=== PATIENT | male | born 2000 | race Caucasian/White ===

== ENCOUNTER → 2021-09-08 09:49 | Outpatient (CLI) | payer OTHER, SELFPAY ==
--- NOTE | ~2021-09-08 | XR_ITS ---
EXAMINATION: XR lumbar spine min 4V DATE: 09/08/2021 10:08 INDICATION: A few days of low back pain TECHNIQUE: Anteroposterior, lateral and coned-down lateral lumbosacral views of the lumbar spine were obtained]. COMPARISON: None. FINDINGS: 5 mm anterolisthesis L5 on S1. Alignment is otherwise normal. Mild likely developmental posterior gosia tebral body height loss at L5. Remaining vertebral body heights are normal. Mild to moderate disc hei ght loss at L5-S1. There appears to be some increased lucency extending across the L5 pars interartic ularis suspicious but not definitive for a pars interarticularis defect/defects. Sacrum and bilateral sacroiliac joints are normal. IMPRESSION: 1. 5 mm anterolisthesis L5 on S1 with suspicion for possible associated pars interarticularis defects . Could consider oblique views for more definitive determination. 2. Mild to moderate disc height loss at L5-S1. IMPRESSION: 1. Reviewed, dictated and finalized at location A. IMPRESSION: 1. 5 mm anterolisthesis L5 on S1 with suspicion for possible associated pars in terarticularis defects. Could consider oblique views for more definitive determ ination. 2. Mild to moderate disc height loss at L5-S1. IMPRESSION: 1.
== END ==
PROVIDERS: PCP Family Medicine; Visit Provider Family Medicine
DX: M47.816 Spondylosis without myelopathy or radiculopathy, lumbar region (principal)
CPT/HCPCS: 72110

== ENCOUNTER 2022-11-29 08:01 | Inpatient (IN) | payer OTHER, SELFPAY ==
--- NOTE | ~2022-11-29 | CT_ITS ---
EXAMINATION: CT abdomen pelvis w con INDICATION: Left lower quadrant pain TECHNIQUE: Computed tomographic images of the abdomen and pelvis were obtained after the administrati on of 100 cc of Omnipaque 350 intravenous contrast. The dose-length product (DLP) was 1595.02 mGy-cm. Automated exposure control and iterative reconstruction technique were employed. COMPARISON: None available FINDINGS: Minimal dependent atelectasis is present in the lung bases. The heart size is normal. A 2 m m nodule of the left lower lobe likely reflects granulomatous disease. The liver is diffusely low in attenuation when compared with the spleen, consistent with hepatic steatosis. The spleen, pancreas, g allbladder, and adrenal glands are normal. The kidneys are unremarkable. No pathologically enlarged a bdominal or pelvic lymph nodes are identified. The appendix is normal. Colonic diverticulosis is note d. There is wall thickening of the sigmoid colon with adjacent fat stranding. There is a perisigmoid fluid collection measuring up to 3.9 cm and multiple small locules of adjacent gas, consistent with p erforation. There are no dilated loops of bowel. IMPRESSION: 1. Perforated sigmoid diverticulitis with perisigmoid abscess measuring up to 3.9 cm. Reviewed, dictated and finalized at location L. [employer]ING MACHINE OPERATOR IMPRESSION: 1. Perforated sigmoid diverticulitis with perisigmoid abscess measuring up to 3 .9 cm.
[2022-11-29 08:06] VITALS: BP 153/106; PULSE 100; RESP 18; TEMP 37.2; O2SAT 100
--- NOTE | 2022-11-29 08:10 | ED.GENADULT ---
HPI - General Adult General Chief complaint: Abdominal Pain Stated complaint: abd pain Time Seen by Provider: 11/29/22 08:03 History of Present Illness HPI narrative: 21-year-old male presented to the emergency department for evaluation of lower abdominal pain for approximate 1 week. Patient states over the course of the last week he has had left-sided lower abdominal pain. Patient states he has had some issues with constipation but is also had some diarrhea. Patient denies any prior significant history of constipation but states he does have hemorrhoids. Patient denies any rectal bleeding with this. Patient denies any previous abdominal surgical history. Patient has not had follow-up with any other physicians for this pain today. Related Data Allergies Allergy/AdvReac Type Severity Reaction Status Date / Time No Known Drug Allergies Allergy Unknown Unknown Verified 11/29/22 08:40 Review of Systems Review of Systems: CONSTITUTIONAL: Denies fever, chills, or sweats. EYES: Denies visual changes, redness, or discharge. ENT: Denies rhinorrhea, congestion, sore throat, or otalgia. CARDIOVASCULAR: Denies chest pain, palpitations, or edema. RESPIRATORY: Denies cough or dyspnea. GASTROINTESTINAL: See HPI GENITOURINARY: Denies dysuria or hematuria. SKIN: Denies rash or itching. MUSCULOSKELETAL: Denies back pain, joint pain, or myalgia. NEUROLOGIC: Denies headache, numbness, or weakness. [facility] Past Medical History Medical History No significant past medical history Surgical History Surgical History No pertinent past surgical history Family History Family History Father Diverticulitis large intestine Grandparent Diverticulitis large intestine Other Diverticulitis large intestine Social History Social History Smoking status: Current every day smoker Tobacco type: e-cigarettes/vaping Second hand tobacco smoke exposure: Yes Additional smoking assessment comments: social THC smoker Alcohol intake: never Substance use: current Substance use type: marijuana Other substance usage details: Smokes or uses vape pen with marijuana daily Last use: 11/29/22 Lack of Transportation: No Lack of Food: Never True Current Housing: I Have Housing Concerned About Future Housing: No Difficulty Paying Gas/Electric Bills: No Difficulty Paying for Meds: No Currently Unemployed: No Education: Associate Degree Difficulty w/ Childcare or Family Care: No Living arrangements: with family Spiritual care concerns: No Exam Narrative: APPEARANCE: Well appearing, no pain, no distress, well-nourished. HEAD: normocephalic, atraumatic. EYES: PERRLA/EOMI, conjunctivae clear. NOSE: Normal no drainage NECK: Supple. No adenopathy, no masses. RESPIRATORY: Airway patent, respirations nonlabored. Clear to auscultation bilaterally, no rales, rhonchi, wheezing. CARDIOVASCULAR: Regular rate and rhythm without murmurs rubs or gallops. ABDOMINAL: Soft, left lower quadrant tenderness, nondistended, normal bowel sounds MUSCULOSKELETAL: Moves all extremities. Strength/ROM intact, No edema, No calf tenderness. NEURO: Alert. Cranial nerves II through XII intact. Grossly intact SKIN: Warm, dry. Normal Color Course Course Emergency Course: Labs and CT scan were ordered. Patient does have reproducible left lower quadrant tenderness to palpation. With history of hemorrhoids patient likely has history of undiagnosed constipation. Differential diagnosis does include diverticulitis, colitis, small bowel obstruction, appendicitis, constipation. Patient declined any medications for pain control at this time. Patient is afebrile but does have a leukocytosis of 13.3. Patient CT scan showed perforated diverticuli
[2022-11-29 08:23] LABS: Appearance Urine Clear (Clear); Bilirubin Urine Negative (Negative); Blood Urine Negative (Negative); Color Urine Yellow (Yellow); Glucose Urine UA Negative (Negative); Ketones Urine Negative (Negative); Leukocyte Esterase Ur Negative LEU/UL (Negative); Nitrate Urine Negative (Negative); Protein Urine Negative (Negative); Specific Grav Ur 1.025 (1.001-1.035); Urobilinogen Urine 0.2 mg/dL (<2.0)
[2022-11-29 08:31] LABS: Add Urine Microscopic? NO
[2022-11-29 08:32] LABS: Basophils Absolute Auto 0.1 K/mm3 (0.0-0.1); Basophils Percent Auto 0.5 % (0.2-1.2); Eosinophils Absolute Auto 0.2 K/mm3 (0-0.3); Eosinophils Percent Auto 1.3 % (0-4.4); Hematocrit 45.2 % (42.0-52.0); Hemoglobin 14.2 g/dL (14.0-18.0); Immature Granulocyte Absolute 0.06 K/mm3 (0.00-0.031); Immature Granulocyte Percent A 0.5 % (0-0.5); Lymphocytes Percent Auto 18.1 % (18.3-44.2); Mean Corpuscular HGB Conc 31.4 g/dl (32-36); Mean Corpuscular Hemoglobin 26.3 pg (26-34); Mean Corpuscular Volume 83.7 fl (80-100); Mean Platelet Volume 9.3 fl (7.4-10.4); Monocytes Percent Auto 7.8 % (2.6-8.5); Neutrophils Absolute Auto 9.5 K/mm3 (1.3-6.7); Neutrophils Percent Auto 71.8 % (45.5-73.1); Platelet Count Result 315 k/mm3 (150-375); Red Cell Distribution Width 13.2 % (11.5-14.5); White Blood Count 13.3 K/mm3 (4.5-10.0)
[2022-11-29 08:41] LABS: Alanine Aminotransferase 22 U/L (6-50); Albumin Level 4.1 g/dL (3.5-5.1); Alkaline Phosphatase 111 U/L (38-126); Anion Gap 9 mmol/L (8-16); Aspartate Amino Transferase 27 U/L (17-59); Bilirubin,Total 0.2 mg/dL (0.2-1.3); Blood Urea Nitrogen 14 mg/dL (9-20); Calcium 8.6 mg/dL (8.4-10.2); Carbon Dioxide 24 mmol/L (22-30); Chloride 104 mmol/L (98-107); Estimated CRCL calculation 166 ml/min; Estimated Glomerular Filt Rate > 60; Glucose 112 mg/dL (65-110); Lactic Acid Reflex 0.8 mmol/L (0.7-2.0); Lipase 55 U/L (23-300); Potassium 3.8 mmol/L (3.4-5.0); Sodium 137 mmol/L (137-145)
[2022-11-29] MEDS: SODIUM CHLORIDE 0.9% IV 1,000 ML 999 ML IV CONT (08:46)
[2022-11-29 10:24] LABS: Influenza A QL RT-PCR Negative (Negative); Influenza B QL RT-PCR Negative (Negative); RSV RNA, RT-PCR Negative (Negative); SARS-CoV-2 RNA PCR Negative
[2022-11-29 11:00] VITALS: BP 143/99; PULSE 73; RESP 16; O2SAT 100
--- NOTE | 2022-11-29 11:02 | PM.IMHP ---
H&P: HPI History of Present Illness Date/Time: 11/29/22 11:02 Chief Complaint: Lower abdominal pain Narrative: This is a 21-year-old with no known medical history, who presented to the ER with complaints of lower abdominal pain. His pain started about 1 week ago and was mild initially. He first noticed LLQ and suprapubic abdominal pain. Denies any associated nausea, vomiting, bloating, fevers, or chills. He does reports having loose stools over the past week, but prior to his abdominal pain he deals with chronic constipation. Over the past 2 days, his abdominal pain worsened and he states it goes across his entire lower abdomen, but worse in LLQ. It is aggravated by straining when he urinates or moves his bowels. The pain kept him up last night and he decided to come into the ER for evaluation. Labs showed a WBC count 13,300. He was afebrile in the ER. CT scan of the abdomen and pelvis showed perforated sigmoid diverticulitis with perisigmoid abscess measuring up to 3.9 cm. Our service was consulted by the ED physician for the perforated diverticulitis with abscess. He is now seen in the ER for surgical consultation. He is accompanied by his mother. He denies ever having diverticulitis in the past. Denies any surgical history. Review of Systems Review of Systems: All systems reviewed & are unremarkable except as noted in HPI and below Constitutional: Constitutional: Reports no additional constitutional complaints, Denies chills, Denies fatigue and Denies poor appetite Eyes: Eyes: Reports no additional eye complaints ENT: Reports system reviewed and no additional complaints, except as documented and Denies dizziness Cardiovascular: Cardiovascular: Reports no additional cardiovascular complaints, Denies chest pain and Denies leg edema Respiratory: Respiratory: Reports no additional respiratory complaints, Denies cough and Denies dyspnea Gastrointestinal: Gastrointestinal: Reports as per HPI, Reports no additional gastrointestinal complaints, Reports abdominal pain, Denies melena, Denies hematochezia, Reports loose stools, Denies nausea and Denies vomiting Genitourinary: Genitourinary: Reports no additional male genitourinary complaints and Denies dysuria Musculoskeletal: Musculoskeletal: Reports no additional musculoskeletal complaints, Denies abnormal gait and Denies joint swelling Integumentary/Breasts: Skin/Breast: Reports system reviewed and no additional complaints, except as docu Neurologic: Reports system reviewed and no additional complaints, except as documented, Denies focal weakness, Denies numbness and Denies tingling PMFSH Past Medical History Medical History No significant past medical history Surgical History Surgical History No pertinent past surgical history Family History Family History Father Diverticulitis large intestine Grandparent Diverticulitis large intestine Other Diverticulitis large intestine Social History Social History Smoking status: Never smoker Alcohol intake: never Substance use: current Substance use type: marijuana Other substance usage details: Smokes or uses vape pen with marijuana daily Last use: 11/29/22 Meds Home Medications and Allergies Allergies Allergy/AdvReac Type Severity Reaction Status Date / Time No Known Drug Allergies Allergy Unknown Unknown Verified 11/29/22 08:40 Vital Signs Vital Signs - 24 hr 11/29/22 08:06 Temperature 99 F Pulse Rate 100 Respiratory Rate 18 Blood Pressure 153/106 H Pulse Oximetry 100 Oxygen Delivery Room Air Exam Const: General: comfortable, no acute distress and awake Nutritional Appearance: obese Orientation/consciousness: patient oriented x3 HENMT: Head: normocephalic and atraumatic Ears:
--- NOTE | 2022-11-29 11:07 | PC.NURSE ---
This patient, Shaw Fuentes, was admitted to [facility] Surg Room 316-02. Patient/family oriented to hospital policies and general routines including ID bracelet, bed and alarms, visiting hours, pain management, procedures, bathroom and other care routines, personal items, smoking policy, room service/diet, and visiting hours. Information on how to activate the Rapid Response Team has been discussed. Patient/Family are encouraged to report perceived risks to care and to ask questions if they do not understand what they are told or what they should do.
[2022-11-29 11:28] VITALS: BP 138/96; PULSE 76; RESP 18; TEMP 36; O2SAT 100
[2022-11-29] MEDS: SODIUM CHLORIDE 0.9% IV 1,000 ML 100 ML IV CONT ×2 (13:02→23:43)
[2022-11-29 13:03] VITALS: BMI 42.7
[2022-11-29 13:50] VITALS: BP 160/102; PULSE 87; RESP 18; TEMP 36.4; O2SAT 99
[2022-11-29 21:20] VITALS: BP 123/93; PULSE 75; RESP 16; TEMP 36.8; O2SAT 96
[2022-11-30] MEDS: ONDANSETRON INJ 4 MG/2 ML VIAL IV PUSH (06:10)
[2022-11-30] MEDS: HYDROmorphone HCL INJ (*CRX) 1 MG/ML SYR 0.5 MG IV PUSH (06:10)
[2022-11-30 06:21] VITALS: BP 134/91; PULSE 82; RESP 16; TEMP 36.4; O2SAT 100
[2022-11-30 06:21] LABS: Hematocrit 42.4 % (42.0-52.0); Hemoglobin 13.4 g/dL (14.0-18.0); Mean Corpuscular HGB Conc 31.6 g/dl (32-36); Mean Corpuscular Hemoglobin 26.6 pg (26-34); Mean Corpuscular Volume 84.1 fl (80-100); Mean Platelet Volume 9.6 fl (7.4-10.4); Platelet Count Result 291 k/mm3 (150-375); Red Blood Count 5.04 M/mm3 (4.6-6.20); Red Cell Distribution Width 13.3 % (11.5-14.5); White Blood Count 11.3 K/mm3 (4.5-10.0)
[2022-11-30 06:47] LABS: Potassium 3.7 mmol/L (3.4-5.0)
[2022-11-30 06:58] LABS: Anion Gap 6 mmol/L (8-16); Blood Urea Nitrogen 12 mg/dL (9-20); CRP 6.4 mg/dL (<1.0); Calcium 8.6 mg/dL (8.4-10.2); Carbon Dioxide 28 mmol/L (22-30); Chloride 106 mmol/L (98-107); Estimated CRCL calculation 149 ml/min; Estimated Glomerular Filt Rate > 60; Glucose 103 mg/dL (65-110); Sodium 140 mmol/L (137-145)
--- NOTE | 2022-11-30 10:17 | PM.PNGS ---
Progress Note: A&P Assessment and Plan (1) Diverticulitis of intestine with perforation and abscess: Qualifiers: Diverticulitis bleeding: without bleeding Diverticulitis site: large intestine Qualified Code(s): K57.20 - Diverticulitis of large intestine with perforation and abscess without bleeding Code(s): K57.80 - Diverticulitis of intestine, part unspecified, with perforation and abscess without bleeding Status: Acute Assessment and Plan: Still having pain but seems to be controlled well with analgesics. Has active bowel sounds and abdominal tenderness seems improved. White blood cell count is slightly lower. Will go ahead and start on clear liquids. Continue to follow daily exam, labs, vital signs. Subjective Subjective Date/Time Seen: 11/30/22 10:17 Patient reports: still having pain, no bowel movement, nausea and afebrile Interval history: Abdominal pain seems to be more constant and less episodic then it was before. Relieved by analgesics. Had some nausea but this was relieved with Zofran. Review of Systems Review of Systems: All systems reviewed & are unremarkable except as noted in HPI and below (HPI and those items noted below) Exam Const: General: comfortable, no acute distress, alert and awake; No confusion Nutritional Appearance: obese Orientation/consciousness: patient oriented x3 and No confusion GI: Inspection: non-distended and obesity GI Palp: Yes Soft to palpation, Yes Tenderness to palpation present (GI) (Mostly left lower quadrant, less tender than yesterday), No Guarding due to palpation present (GI), No Palpable mass present and No Rebound tenderness present Auscultation: normal bowel sounds Neuro: General: patient oriented x3, no focal motor deficits and No confusion Extrem: General: no calf tenderness and no edema Psych: Affect: normal affect Insight: Good insight present (Psych) Judgement: Good judgement present (Psych) Objective Data Vital Signs Vital Signs: Vital Signs - 24 hr 11/29/22 11:00 11/29/22 11:28 11/29/22 13:50 Temperature 36.0 C L 36.4 C L Pulse Rate 73 76 87 Respiratory Rate 16 18 18 Blood Pressure 143/99 H 138/96 H 160/102 H Pulse Oximetry 100 100 99 Oxygen Delivery 11/29/22 21:20 11/29/22 20:00 11/30/22 06:21 Temperature 36.8 C 36.4 C L Pulse Rate 75 82 Respiratory Rate 16 16 Blood Pressure 123/93 H 134/91 H Pulse Oximetry 96 100 Oxygen Delivery Room Air 11/30/22 09:00 Temperature Pulse Rate Respiratory Rate Blood Pressure Pulse Oximetry Oxygen Delivery Room Air Intake/Output Intake/Output: Intake & Output 11/27/22 11/28/22 11/29/22 11/30/22 23:59 23:59 23:59 23:59 Intake Total 2200 200 Balance 2200 200 Meds/Results Medications: Active Medications Generic Name Dose Route Start Last Admin Trade Name Freq PRN Reason Stop Dose Admin Acetaminophen 500 mg 11/30/22 09:37 Acetaminophen 500 Mg Tablet PO Q6H PRN Mild Pain (1-3) or Fever Hydrocodone Bitart/Acetaminophen 1 tab 11/30/22 09:37 Hydrocodone/Acetaminophen (*Crx) 5-325 Mg Tablet PO Q4H PRN Pain Rated 4-6 Hydrocodone Bitart/Acetaminophen 1 tab 11/30/22 09:37 Hydrocodone/Acetaminophen (*Crx) 10-325 Mg Tablet PO Q6H PRN Pain Rated 7-10 Enoxaparin Sodium 40 mg 12/01/22 09:00 Enoxaparin 40 Mg/0.4 Ml Syringe SUB-Q DAILY MIKI Hydromorphone HCl 0.5 mg 11/30/22 09:37 Hydromorphone Hcl Inj (*Crx) 1 Mg/Ml Syr IV PUSH Q2H PRN Pain Rated 4-6 Hydromorphone HCl 1 mg 11/30/22 09:37 Hydromorphone Hcl Inj (*Crx) 1 Mg/Ml Syr IV PUSH Q2H PRN Pain Rated 7-10 Piperacillin/Tazobactam/Dextrose 3.375 gm in 50 mls @ 100 mls/hr 11/29/22 18:00 11/30/22 06:08 Zosyn 3.375 Gm/D5w 50ml Pm IVPB Infused Q6HR [facility], [facility] Infusion Potassium Chloride/Dextrose/Sod Cl 1,000 mls @ 80 mls/hr 11/30/22 11:00 Kcl 20 Meq/D5/0.9% Sod Chl IV CONT .[id number] [facility]
[2022-11-30] MEDS: HYDROmorphone HCL INJ (*CRX) 1 MG/ML SYR IV PUSH ×3 (12:19→22:00)
[2022-11-30] MEDS: ENOXAPARIN 40 MG/0.4 ML SYRINGE SUB-Q (12:29)
[2022-11-30] MEDS: KCL 20 MEQ/D5/0.9% SOD CHL 1,000 ML 80 ML IV CONT (12:56)
[2022-11-30 14:00] VITALS: BP 164/98; PULSE 89; RESP 16; TEMP 36; O2SAT 97
[2022-11-30 21:44] VITALS: BP 147/95; PULSE 89; RESP 14; TEMP 36.2; O2SAT 98
[2022-11-30 22:53] VITALS: O2SAT 98
[2022-12-01] MEDS: KCL 20 MEQ/D5/0.9% SOD CHL 1,000 ML 80 ML IV CONT ×2 (00:44→12:24)
[2022-12-01 05:44] VITALS: BP 112/78; PULSE 65; RESP 14; TEMP 36.1; O2SAT 98
[2022-12-01 07:26] LABS: Hematocrit 38.6 % (42.0-52.0); Hemoglobin 12.2 g/dL (14.0-18.0); Mean Corpuscular HGB Conc 31.6 g/dl (32-36); Mean Corpuscular Hemoglobin 26.4 pg (26-34); Mean Corpuscular Volume 83.5 fl (80-100); Mean Platelet Volume 9.5 fl (7.4-10.4); Platelet Count Result 285 k/mm3 (150-375); Red Blood Count 4.62 M/mm3 (4.6-6.20); White Blood Count 10.3 K/mm3 (4.5-10.0)
[2022-12-01 07:50] LABS: Anion Gap 5 mmol/L (8-16); Blood Urea Nitrogen 9 mg/dL (9-20); Carbon Dioxide 28 mmol/L (22-30); Chloride 104 mmol/L (98-107); Estimated CRCL calculation 164 ml/min; Estimated Glomerular Filt Rate > 60; Glucose 97 mg/dL (65-110); Potassium 3.4 mmol/L (3.4-5.0); Sodium 137 mmol/L (137-145)
[2022-12-01] MEDS: HYDROcodone/acetaminophen (*CRX) 10-325 MG TABLET 1 TAB PO (09:05)
[2022-12-01] MEDS: ENOXAPARIN 40 MG/0.4 ML SYRINGE SUB-Q (09:05)
--- NOTE | 2022-12-01 09:49 | PM.PNGS ---
Progress Note: A&P Assessment and Plan (1) Diverticulitis of intestine with perforation and abscess: Qualifiers: Diverticulitis bleeding: without bleeding Diverticulitis site: large intestine Qualified Code(s): K57.20 - Diverticulitis of large intestine with perforation and abscess without bleeding Code(s): K57.80 - Diverticulitis of intestine, part unspecified, with perforation and abscess without bleeding Status: Acute Assessment and Plan: The patient continues to improve with non operative management of his acute diverticulitis with micro perforation and small abscess. His white blood cell count continues to decrease and he remains afebrile. His abdominal tenderness is minimal. Will go ahead and advance him to a full liquid diet later today and if he is tolerating that then will likely is advanced to a low-fiber diet tomorrow and hopefully discharge home on oral antibiotics tomorrow. For now continue on IV antibiotics. Subjective Subjective Date/Time Seen: 12/01/22 09:49 Patient reports: no new complaints, feels better, pain is less and tolerating liquids well Interval history: Patient feels better today. He did have a loose bowel movement this morning. His pain is only 1 on a scale of 1 to 10. He has tolerated clear liquids. White blood cell count is lower today at 10,300. Review of Systems Review of Systems: The remainder of the review of systems to include constitutional, HEENT, cardiovascular, respiratory, GI, , integumentary, musculoskeletal, endocrine, immunologic, hematologic, psychiatric, and neurologic are all negative except for which is mentioned above in the HPI. Exam Narrative: The abdomen is soft and nondistended. Deep palpation in the left lower quadrant elicits minimal tenderness. Resp: Effort & Inspection: normal respiratory effort Auscultation: clear to auscultation bilaterally Cardio: Rate: regular rate Rhythm: regular rhythm Neuro: Speech: normal speech Sensory Exam: normal sensation Extrem: General: normal to inspection Psych: Mental Status: mental status grossly normal Affect: normal affect Objective Data Vital Signs Vital Signs: Vital Signs - 24 hr 11/30/22 14:00 11/30/22 21:44 11/30/22 20:00 Temperature 36.0 C L 36.2 C L Pulse Rate 89 89 Respiratory Rate 16 14 Blood Pressure 164/98 H 147/95 H Pulse Oximetry 97 98 Oxygen Delivery Room Air 12/01/22 05:44 11/30/22 22:53 Temperature 36.1 C L Pulse Rate 65 Respiratory Rate 14 Blood Pressure 112/78 Pulse Oximetry 98 98 Oxygen Delivery Room Air Intake/Output Intake/Output: Intake & Output 11/28/22 11/29/22 11/30/22 12/01/22 23:59 23:59 23:59 23:59 Intake Total 2200 300 1550 Balance 2200 300 1550 Meds/Results Medications: Active Medications Generic Name Dose Route Start Last Admin Trade Name Freq PRN Reason Stop Dose Admin Acetaminophen 500 mg 11/30/22 09:37 Acetaminophen 500 Mg Tablet PO Q6H PRN Mild Pain (1-3) or Fever Hydrocodone Bitart/Acetaminophen 1 tab 11/30/22 09:37 Hydrocodone/Acetaminophen (*Crx) 5-325 Mg Tablet PO Q4H PRN Pain Rated 4-6 Hydrocodone Bitart/Acetaminophen 1 tab 11/30/22 09:37 12/01/22 09:05 Hydrocodone/Acetaminophen (*Crx) 10-325 Mg Tablet PO 1 tab Q6H PRN Administration Pain Rated 7-10 Enoxaparin Sodium 40 mg 12/01/22 09:00 12/01/22 09:05 Enoxaparin 40 Mg/0.4 Ml Syringe SUB-Q 40 mg DAILY MIKI Administration Hydromorphone HCl 0.5 mg 11/30/22 09:37 Hydromorphone Hcl Inj (*Crx) 1 Mg/Ml Syr IV PUSH Q2H PRN Pain Rated 4-6 Hydromorphone HCl 1 mg 11/30/22 09:37 11/30/22 22:00 Hydromorphone Hcl Inj (*Crx) 1 Mg/Ml Syr IV PUSH 1 mg Q2H PRN Administration Pain Rated 7-10 Piperacillin/Tazobactam/Dextrose 3.375 gm in 50 mls @ 100 mls/hr 11/29/22 18:00 12/01/22 06:17 Zosyn 3.375 Gm/D5w 50ml Pm IVPB 100 mls/hr Q6HR MIKI Administratio
[2022-12-01] MEDS: HYDROmorphone HCL INJ (*CRX) 1 MG/ML SYR IV PUSH ×2 (12:50→20:33)
[2022-12-01 14:42] VITALS: BP 145/96; PULSE 77; RESP 18; TEMP 36.3; O2SAT 98
[2022-12-01 21:50] VITALS: BP 140/93; PULSE 88; RESP 14; TEMP 36.1; O2SAT 99
[2022-12-02] MEDS: KCL 20 MEQ/D5/0.9% SOD CHL 1,000 ML 80 ML IV CONT (00:21)
[2022-12-02 05:56] VITALS: BP 141/83; PULSE 61; RESP 14; TEMP 36.1; O2SAT 98
[2022-12-02 07:16] LABS: Hematocrit 45.9 % (42.0-52.0); Hemoglobin 14.3 g/dL (14.0-18.0); Mean Corpuscular HGB Conc 31.2 g/dl (32-36); Mean Corpuscular Hemoglobin 25.8 pg (26-34); Mean Corpuscular Volume 82.9 fl (80-100); Mean Platelet Volume 9.4 fl (7.4-10.4); Platelet Count Result 352 k/mm3 (150-375); Red Blood Count 5.54 M/mm3 (4.6-6.20); Red Cell Distribution Width 12.6 % (11.5-14.5); White Blood Count 8.8 K/mm3 (4.5-10.0)
[2022-12-02 07:26] LABS: Anion Gap 5 mmol/L (8-16); Blood Urea Nitrogen 7 mg/dL (9-20); Calcium 8.7 mg/dL (8.4-10.2); Carbon Dioxide 31 mmol/L (22-30); Chloride 99 mmol/L (98-107); Estimated CRCL calculation 149 ml/min; Estimated Glomerular Filt Rate > 60; Glucose 94 mg/dL (65-110); Potassium 3.3 mmol/L (3.4-5.0); Sodium 135 mmol/L (137-145)
--- NOTE | 2022-12-02 11:56 | PM.DS ---
DS: Admitting Diagnosis Discharge Date December 02, 2022 Admitting Diagnosis Acute diverticulitis with small pelvic abscess. DS: Discharge Diagnosis Discharge Diagnosis (1) Diverticulitis of intestine with perforation and abscess: Qualifiers: Diverticulitis bleeding: without bleeding Diverticulitis site: large intestine Qualified Code(s): K57.20 - Diverticulitis of large intestine with perforation and abscess without bleeding Code(s): K57.80 - Diverticulitis of intestine, part unspecified, with perforation and abscess without bleeding Status: Acute Assessment and Plan: Patient has resolved acute phase diverticulitis with non operative management and IV antibiotics. He will be discharged home today or antibiotics for another 7 days. He was instructed to stay on a low-fiber diet. He will see Dr. Ball in the office in 2 weeks. DS: Summary Hospital Course Hospital Course: Patient was admitted through the emergency room with complaints of lower abdominal pain for 2 days prior to admission. He was noted to have an elevated white blood cell count of 13,[address] scan abdomen pelvis was performed showing acute sigmoid diverticulitis with likely microperforation and a small 3.9cm abscess in the pelvis. He was admitted to the hospital and kept on bowel rest and started on Zosyn for IV antibiotics. He was given pain medicines as needed and hydrated with IV fluids. He responded well to the IV antibiotics and bowel rest. His pain resolved over the course of 2 days and he was started on clear liquids and eventually advanced to a low-fiber diet which he tolerated without difficulty. He was having loose bowel movements at the time of discharge. Remained afebrile throughout his hospitalization and his white blood cell count normalized. His abdominal exam was benign at the time of discharge with no tenderness to deep palpation left lower quadrant of the abdomen. Was discharged home on oral antibiotics and instructed to return to see Dr. Ball in the office in 2 weeks. Status at Discharge Cognitive/behavioral status at discharge: Normal cognitive status Functional status at discharge: independent ambulation Overall status at discharge: patient is back to baseline Time Spent with Patient Time attestation: Total time spent providing and/or coordinating discharge services: Time spent: Less than 30 minutes Exam Narrative: Const: General: comfortable and no acute distress Eyes: General: appearance normal, both eyes and all related structures Pupils: Equal, round and reactive pupils present Neck: Neck: supple and no JVD Resp: Effort & Inspection: normal respiratory effort Auscultation: clear to auscultation bilaterally Cardio: Rate: regular rate Rhythm: regular rhythm GI: Other: Patient's abdomen is soft and nondistended. Palpation of the left lower quadrant and the area of his previous tenderness elicits no tenderness today. The abdominal exam is benign. Skin: General skin exam: normal color and no rashes or lesions noted Neuro: General: gait normal Motor exam (neuro): 5/5 motor strength present throughout Sensory Exam: normal sensation Extrem: General: normal to inspection Psych: Mental Status: mental status grossly normal Affect: normal affect DS: Data Data Completed and Pending Labs on day of discharge: Labs from last 24 hours 12/02/22 12/02/22 06:56 06:56 WBC 8.8 RBC 5.54 Hgb 14.3 Hct 45.9 MCV 82.9 MCH 25.8 L MCHC 31.2 L RDW 12.6 Plt Count 352 MPV 9.4 Sodium 135 L Potassium 3.3 L Chloride 99 Carbon Dioxide 31 H Anion Gap 5 L BUN 7 L Creatinine 1.00 Estim Creat Clear Calc 149 Estimated GFR > 60 Glucose 94 Calcium 8.7 Preliminary micro results at discharge 11/29/22 09:35 Blood Culture - Preliminary Blood 11/29/22 09:35 Blood Culture - Preliminary Blood Discharge Plan Discharge Att
== END 2022-12-02 12:55 | disposition home or self-care (01) | DRG 392 ==
LOC: ANHED 08:29 → ANH3MEDSUR 10:34
PROVIDERS: Nurse Practitioner Family; Admitting Provider Surgery; Emergency Provider Emergency Medicine; PCP Student in an Organized Health Care Education/Training Program; Visit Provider Surgery
DX: K57.20 Diverticulitis of large intestine with perforation and abscess without bleeding (principal); Z68.41 Body mass index [BMI] 40.0-44.9, adult; Z20.822 Contact with and (suspected) exposure to COVID-19; F17.290 Nicotine dependence, other tobacco product, uncomplicated; E66.01 Morbid (severe) obesity due to excess calories; F12.90 Cannabis use, unspecified, uncomplicated
CPT/HCPCS: 36415; 74177; 80048; 80053; 81003; 83605; 83690; 85025; 85027; 86140; 87040; 87637; 99285; A9270; J0131; J1170; J1650; J2405; J2543; J3480; J7030; Q9967

== ENCOUNTER 2022-12-12 19:20 | Inpatient (IN) | payer OTHER, SELFPAY ==
--- NOTE | ~2022-12-12 | CT_ITS ---
EXAMINATION: CT abdomen pelvis w con DATE: 12/12/2022 21:05 INDICATION: Diverticulitis with abscess TECHNIQUE: Computed tomography (CT) of the abdomen and pelvis was performed with 100 mL Omnipaque-350 intravenous contrast. Automated exposure control and iterative reconstruction technique were employe d. The dose-length product was 1668.75 mGy-cm. COMPARISON: 11/29/2022. FINDINGS: Lower thorax: Unremarkable Liver: Enlarged. Diffuse fatty infiltration. Biliary/Gallbladder: Gallbladder is normal. No bile duct dilation. Pancreas: No mass or duct dilation. Spleen: Normal. Adrenals:No mass. Kidneys: No mass, stone, or hydronephrosis. GI tract: No small or large bowel dilation. Normal appendix. Short segment mid sigmoid wall thickenin g in the left lateral deep pelvis, with surrounding inflammatory change, thickening of the adjacent p eritoneal reflection, and a disorganized appearing collection of gas in the adjacent fat. Near-comple te interval resolution of the previously described perisigmoid abscess No defined abscess formation d etected at this time. No portal venous gas. No pneumatosis. Uniform bowel wall enhancement. Mesentery/Peritoneum: No ascites, mass, or free air. Retroperitoneum: No mass. Pelvis: Pelvic organs are within normal limits, except as noted above. Soft Tissues: Soft tissues and body wall unremarkable. Bones: No acute osseous finding. IMPRESSION: Interval improving findings associated with the complicated sigmoid diverticulitis. Near-complete int erval resolution of the perisigmoid abscess. Decreased pericolonic gas associated with the contained microperforation. Reviewed, dictated and finalized at location K. SPECIALIST IMPRESSION: Interval improving findings associated with the complicated sigmoid diverticuli tis. Near-complete interval resolution of the perisigmoid abscess. Decreased pe ricolonic gas associated with the contained microperforation.
[2022-12-12 19:31] VITALS: BP 148/92; PULSE 112; RESP 18; TEMP 37; O2SAT 99
--- NOTE | 2022-12-12 19:45 | PC.NURSE ---
pt c/o LLQ pain x 1 week. states has hx of diverticulitis and pain feels the same. also states he has periods of diarrhea and constipation. denies any n/v or problems with urination
[2022-12-12 20:13] LABS: Basophils Absolute Auto 0.1 K/mm3 (0.0-0.1); Basophils Percent Auto 0.4 % (0.2-1.2); Eosinophils Absolute Auto 0.2 K/mm3 (0-0.3); Eosinophils Percent Auto 0.9 % (0-4.4); Hematocrit 47.4 % (42.0-52.0); Hemoglobin 15.2 g/dL (14.0-18.0); Immature Granulocyte Absolute 0.11 K/mm3 (0.00-0.031); Immature Granulocyte Percent A 0.6 % (0-0.5); Lymphocytes Absolute Auto 2.94 K/mm3 (0.9-3.2); Lymphocytes Percent Auto 14.9 % (18.3-44.2); Mean Corpuscular HGB Conc 32.1 g/dl (32-36); Mean Corpuscular Hemoglobin 26.3 pg (26-34); Mean Corpuscular Volume 81.9 fl (80-100); Mean Platelet Volume 9.5 fl (7.4-10.4); Monocytes Absolute Auto 1.2 K/mm3 (0.1-0.6); Neutrophils Absolute Auto 15.2 K/mm3 (1.3-6.7); Neutrophils Percent Auto 77.2 % (45.5-73.1); Platelet Count Result 363 k/mm3 (150-375); Red Blood Count 5.79 M/mm3 (4.6-6.20); Red Cell Distribution Width 13.5 % (11.5-14.5); White Blood Count 19.7 K/mm3 (4.5-10.0)
[2022-12-12 20:24] LABS: Alanine Aminotransferase 23 U/L (6-50); Albumin Level 4.1 g/dL (3.5-5.1); Alkaline Phosphatase 126 U/L (38-126); Anion Gap 10 mmol/L (8-16); Aspartate Amino Transferase 30 U/L (17-59); Bilirubin,Total 0.4 mg/dL (0.2-1.3); Blood Urea Nitrogen 13 mg/dL (9-20); Calcium 9.2 mg/dL (8.4-10.2); Carbon Dioxide 23 mmol/L (22-30); Chloride 104 mmol/L (98-107); Estimated CRCL calculation 145 ml/min; Estimated Glomerular Filt Rate > 60; Glucose 93 mg/dL (65-110); Lipase 54 U/L (23-300); Potassium 3.8 mmol/L (3.4-5.0); Sodium 137 mmol/L (137-145)
--- NOTE | 2022-12-12 21:11 | ED.GENADULT ---
HPI - General Adult General Chief complaint: Abdominal Pain Stated complaint: abdominal pain Time Seen by Provider: 12/12/22 19:58 History of Present Illness HPI narrative: 22-year-old male presents with bilateral lower quadrant abdominal pain. Of note he was just discharged from our facility where he was treated as an inpatient for diverticulitis with abscess. He was discharged home with Augmentin and patient states that all medications were taken as directed. He denies fever. Related Data Allergies Allergy/AdvReac Type Severity Reaction Status Date / Time No Known Drug Allergies Allergy Unknown Unknown Verified 12/12/22 19:43 Review of Systems Review of Systems: CONSTITUTIONAL: Denies fever, chills, or sweats. EYES: Denies visual changes, redness, or discharge. ENT: Denies rhinorrhea, congestion, sore throat, or otalgia. CARDIOVASCULAR: Denies chest pain, palpitations, or edema. RESPIRATORY: Denies cough or dyspnea. GASTROINTESTINAL: Denies abdominal pain, nausea, vomiting, or diarrhea. GENITOURINARY: Denies dysuria or hematuria. SKIN: Denies rash or itching. MUSCULOSKELETAL: Denies back pain, joint pain, or myalgia. NEUROLOGIC: Denies headache, numbness, or weakness. PSYCHIATRIC: Denies anxiety or depression. FORMERLY [facility], [facility] Past Medical History Medical History No significant past medical history Surgical History Surgical History No pertinent past surgical history Family History Family History Father Diverticulitis large intestine Grandparent Diverticulitis large intestine Other Diverticulitis large intestine Social History Social History Smoking status: Current every day smoker Tobacco type: e-cigarettes/vaping Second hand tobacco smoke exposure: Yes Additional smoking assessment comments: social THC smoker Alcohol intake: never Substance use: current Substance use type: marijuana Other substance usage details: Smokes or uses vape pen with marijuana daily Last use: 11/29/22 Lack of Transportation: No Lack of Food: Never True Current Housing: I Have Housing Concerned About Future Housing: No Difficulty Paying Gas/Electric Bills: No Difficulty Paying for Meds: No Currently Unemployed: No Education: Associate Degree Difficulty w/ Childcare or Family Care: No Living arrangements: with family Spiritual care concerns: No Exam Narrative: GENERAL: Well-appearing, well-nourished, and in no acute distress. HEAD: Normocephalic, atraumatic. EYES: PERRLA and EOMI. ENT: Nares clear, no rhinorrhea or epistaxis. Mucous membranes moist. NECK: Supple. CHEST: Clear to auscultation. No respiratory distress. HEART: Regular rate and rhythm. No murmur heard. Normal peripheral pulses. ABDOMEN: Soft, tender, nondistended, normal active bowel sounds. EXTREMITIES: Normal range of motion. No edema. SKIN: Warm, dry, no rash. NEURO: No focal deficits. Alert and oriented x3. PSYCH: Normal mood and affect. Course Vital Signs Vital signs: Vital Signs Temperature 98.6 F 12/12/22 19:31 Pulse Rate 112 H 12/12/22 19:31 Respiratory Rate 18 12/12/22 19:31 Blood Pressure 148/92 H 12/12/22 19:31 Pulse Oximetry 99 12/12/22 19:31 Oxygen Delivery Room Air 12/12/22 19:31 Temperature 98.6 F 12/12/22 19:31 Pulse Rate 112 H 12/12/22 19:31 Respiratory Rate 18 12/12/22 19:31 Blood Pressure 148/92 H 12/12/22 19:31 Pulse Oximetry 99 12/12/22 19:31 Oxygen Delivery Room Air 12/12/22 19:31 Medical Decision Making [facility] Narrative Medical decision making narrative: On arrival 20,000 white count noted. We will add antibiotics, pain medicine, CT abdomen and pelvis. Patient was compliant with outpatient therapy but has continued/worsening s
[2022-12-12] MEDS: MORPHINE SULFATE (*CRX) 4 MG/ML INJ IV PUSH (21:36)
[2022-12-12 21:40] VITALS: BP 134/85; PULSE 95; RESP 16; O2SAT 100
[2022-12-12 21:46] LABS: Appearance Urine Clear (Clear); Bilirubin Urine Negative (Negative); Blood Urine Trace-intact (Negative); Color Urine Yellow (Yellow); Glucose Urine UA Negative (Negative); Ketones Urine Negative (Negative); Leukocyte Esterase Ur Negative LEU/UL (Negative); Nitrate Urine Negative (Negative); Protein Urine Negative (Negative); Specific Grav Ur 1.025 (1.001-1.035); Urobilinogen Urine 0.2 mg/dL (<2.0); pH Urine 5.5 (5.0-9.0)
[2022-12-12 21:49] LABS: Add Urine Microscopic? YES; Bacteria Urine Trace /hpf; Mucus Urine Rare /lpf; RBC Urine 0-2 /hpf (0-2); WBC Urine 0-3 /hpf
[2022-12-12 22:00] VITALS: BP 136/79; PULSE 88; RESP 18; O2SAT 99
[2022-12-12 22:28] LABS: Influenza A QL RT-PCR Negative (Negative); Influenza B QL RT-PCR Negative (Negative); RSV RNA, RT-PCR Negative (Negative); SARS-CoV-2 RNA PCR Negative
[2022-12-12] MEDS: ONDANSETRON INJ 4 MG/2 ML VIAL IV PUSH (23:20)
--- NOTE | 2022-12-12 23:34 | PM.IMHP ---
H&P: HPI History of Present Illness Date/Time: 12/12/22 23:34 Chief Complaint: Left lower quadrant pain Narrative: 22 years old gentleman with history of morbid obesity, sigmoid diverticulitis and a micro perforation present ED with a chief complaint of worsening left lower quadrant pain, chills, subjective fever. Patient was admitted to hospital on November 29 and discharged on December 02 because of sigmoid diverticulitis with perforation. Patient received Zosyn and switch to Augmentin at discharge. Patient received last dose of Augmentin 3 days ago. In past 2 days, patient has been feeling worsening left lower quadrant pain also serve as fever and chills, and patient also has nausea denies vomiting diarrhea. Patient comes back to ED today, patient is found have leukocytosis. Patient receives cells in ed. ED physician also consulted the general surgeon, general surgeon recommends to admit patient to hospital for further evaluation and management Review of Systems Review of Systems: All systems reviewed & are unremarkable except as noted in HPI and below PMFSH Past Medical History Medical History No significant past medical history Surgical History Surgical History No pertinent past surgical history Family History Family History Father Diverticulitis large intestine Grandparent Diverticulitis large intestine Other Diverticulitis large intestine Social History Social History Smoking status: Current every day smoker Tobacco type: e-cigarettes/vaping Second hand tobacco smoke exposure: Yes Additional smoking assessment comments: social THC smoker Alcohol intake: never Substance use: current Substance use type: marijuana Other substance usage details: Smokes or uses vape pen with marijuana daily Last use: 11/29/22 Lack of Transportation: No Lack of Food: Never True Current Housing: I Have Housing Concerned About Future Housing: No Difficulty Paying Gas/Electric Bills: No Difficulty Paying for Meds: No Currently Unemployed: No Education: Associate Degree Difficulty w/ Childcare or Family Care: No Living arrangements: with family Spiritual care concerns: No Meds Home Medications and Allergies Home Medications Medication Instructions Recorded Confirmed Type amoxicillin-potassium clavulanate 1 tablet PO Q12H Diverticulitis 12/02/22 Rx 1,000 mg-62.5 mg tablet,ext.rel #14 tabs 12hr (Augmentin XR) Allergies Allergy/AdvReac Type Severity Reaction Status Date / Time No Known Drug Allergies Allergy Unknown Unknown Verified 12/12/22 19:43 Vital Signs Vital Signs - 24 hr 12/12/22 19:31 Temperature 98.6 F Pulse Rate 112 H Respiratory Rate 18 Blood Pressure 148/92 H Pulse Oximetry 99 Oxygen Delivery Room Air Exam Narrative: GENERAL: Morbid obesity acute pain distress. Well-nourished. - EYES: EOMI. Anicteric. - HENT: Moist mucous membranes. - LUNGS: Clear to auscultation bilaterally, no wheezing, rhonchi, or rales. - CARDIOVASCULAR: Regular rate and rhythm. No murmur. No JVD. - ABDOMEN: Soft,has left lower quadrant tender and non-distended. No palpable masses. - EXTREMITIES: No edema. Peripheral pulses 2+. Non-tender. - NEUROLOGIC: No focal neurological deficits. CN II-XII grossly intact. - PSYCHIATRIC: Awake, Alert and oriented x 3. Appropriate mood and affect. - SKIN: No rashes or lesions. Warm. - LYMPH: No cervical lymphadenopathy. H&P: Results Labs Labs: Short CBC 12/12/22 Range/Units 20:07 WBC 19.7 H (4.5-10.0) K/mm3 Hgb 15.2 (14.0-18.0) g/dL Hct 47.4 (42.0-52.0) % Plt Count 363 (150-375) k/mm3 [facility] 12/12/22 20:07 Sodium 137 Potassium 3.8 Chloride 104 Carbon Dioxide 23
[2022-12-13 00:20] VITALS: BP 134/81; O2SAT 100
[2022-12-13 01:00] VITALS: BP 150/93; PULSE 107; RESP 16; TEMP 36; O2SAT 98
[2022-12-13 01:00] LABS: Anion Gap 10 mmol/L (8-16); Blood Urea Nitrogen 12 mg/dL (9-20); Calcium 9.2 mg/dL (8.4-10.2); Carbon Dioxide 22 mmol/L (22-30); Chloride 100 mmol/L (98-107); Estimated CRCL calculation 145 ml/min; Estimated Glomerular Filt Rate > 60; Glucose 106 mg/dL (65-110); Potassium 3.6 mmol/L (3.4-5.0); Sodium 132 mmol/L (137-145)
[2022-12-13 01:03] VITALS: BMI 41.9
--- NOTE | 2022-12-13 01:09 | ADMGEN ---
This patient, Shaw Fuentes, was admitted to [facility] Surg Room 300-01. Patient/family oriented to hospital policies and general routines including ID bracelet, bed and alarms, visiting hours, pain management, procedures, bathroom and other care routines, personal items, smoking policy, room service/diet, and visiting hours. Information on how to activate the Rapid Response Team has been discussed. Patient/Family are encouraged to report perceived risks to care and to ask questions if they do not understand what they are told or what they should do.
[2022-12-13] MEDS: ONDANSETRON INJ 4 MG/2 ML VIAL IV PUSH (02:10)
[2022-12-13] MEDS: HYDROcodone/acetaminophen (*CRX) 5-325 MG TABLET 1 TAB PO ×4 (02:10→21:57)
[2022-12-13] MEDS: SODIUM CHLORIDE 0.9% IV 1,000 ML 100 ML IV CONT ×2 (02:11→13:19)
[2022-12-13 04:50] VITALS: O2SAT 98
[2022-12-13 06:00] VITALS: BP 129/67; PULSE 77; RESP 14; TEMP 35.7; O2SAT 98
[2022-12-13] MEDS: ENOXAPARIN 40 MG/0.4 ML SYRINGE SUB-Q (08:17)
[2022-12-13 09:08] LABS: Basophils Absolute Auto 0.1 K/mm3 (0.0-0.1); Basophils Percent Auto 0.4 % (0.2-1.2); Eosinophils Absolute Auto 0.2 K/mm3 (0-0.3); Eosinophils Percent Auto 1.2 % (0-4.4); Hematocrit 42.5 % (42.0-52.0); Hemoglobin 13.6 g/dL (14.0-18.0); Immature Granulocyte Absolute 0.04 K/mm3 (0.00-0.031); Immature Granulocyte Percent A 0.3 % (0-0.5); Lymphocytes Absolute Auto 2.63 K/mm3 (0.9-3.2); Lymphocytes Percent Auto 20.6 % (18.3-44.2); Mean Corpuscular Hemoglobin 25.9 pg (26-34); Mean Corpuscular Volume 80.8 fl (80-100); Mean Platelet Volume 9.7 fl (7.4-10.4); Monocytes Percent Auto 7.8 % (2.6-8.5); Neutrophils Absolute Auto 8.9 K/mm3 (1.3-6.7); Neutrophils Percent Auto 69.7 % (45.5-73.1); Platelet Count Result 294 k/mm3 (150-375); Red Blood Count 5.26 M/mm3 (4.6-6.20); Red Cell Distribution Width 13.6 % (11.5-14.5); White Blood Count 12.8 K/mm3 (4.5-10.0)
[2022-12-13 09:09] LABS: Alanine Aminotransferase 18 U/L (6-50); Albumin Level 3.5 g/dL (3.5-5.1); Alkaline Phosphatase 105 U/L (38-126); Anion Gap 6 mmol/L (8-16); Aspartate Amino Transferase 22 U/L (17-59); Bilirubin,Total 0.6 mg/dL (0.2-1.3); Blood Urea Nitrogen 12 mg/dL (9-20); Calcium 8.5 mg/dL (8.4-10.2); Carbon Dioxide 28 mmol/L (22-30); Chloride 102 mmol/L (98-107); Estimated CRCL calculation 135 ml/min; Estimated Glomerular Filt Rate > 60; Glucose 97 mg/dL (65-110); Potassium 3.7 mmol/L (3.4-5.0); Sodium 136 mmol/L (137-145)
--- NOTE | 2022-12-13 09:31 | PM.CNGS ---
Assessment and Plan Assessment and plan (1) Diverticulitis: Code(s): K57.92 - Diverticulitis of intestine, part unspecified, without perforation or abscess without bleeding Status: Acute Assessment and Plan: Patient treated conservatively for acute diverticulitis with microperforation and abscess. He initially improved, but symptoms returned towards the end of his antibiotic course and he presented back to the ER with abdominal pain. CT scan reviewed and showed improvement of the sigmoid diverticulitis with interval resolution of the previously seen abscess. No large amount of free intraperitoneal air. No peritoneal signs on exam. Discussed the case with Dr. Ball. We would recommend to continue treating him conservatively with IV Zosyn, bowel rest, IV fluids, and analgesics as needed for now. Discussed with the patient that there is no plan for surgical intervention at this time, but if he worsens or continues to fail conservative treatment, then we may need to consider surgery that would come with an increased risk of requiring an ostomy. (2) Sepsis: Code(s): A41.9 - Sepsis, unspecified organism Status: Acute Assessment and Plan: Tachycardia and leukocytosis on admission in the presence of known infection. Related to the complicated diverticulitis. Blood cx pending. WBC trending down this morning. Continue broad-spectrum IV antibiotics. (3) Obesity, morbid, BMI 40.0-49.9: Code(s): E66.01 - Morbid (severe) obesity due to excess calories Status: Acute (4) Marijuana use: Code(s): F12.90 - Cannabis use, unspecified, uncomplicated Status: Acute Plan I have discussed the patient's case and plan of care with Dr. Ball. Thank you for allowing us to see the patient in consultation and we will continue to follow along with you. History of Present Illness Consult details Consult date: 12/13/22 Reason for consult: other (Diverticulitis with perforation) Requesting physician: Vinh Burris APN-C Narrative: This is a 22-year-old obese man who is known to our service from a recent hospitalization for diverticulitis with perforation and abscess. He was admitted and treated conservatively with IV antibiotics from 11/29/22 through 12/02/22. He improved with conservative treatment and was discharged home with an additional 7 days of Augmentin and instructions for a low fiber diet. He reportedly took all antibiotics as prescribed after discharge. His abdominal pain had resolved when first sent home. He reportedly began noticing the same type of lower abdominal pain starting up again the last few days he was on the antibiotics. Initially his abdominal pain was mild. He also had an upset stomach with poor appetite, but denies nausea or vomiting. Denies any fever or chills. He reports his bowel were moving normally after discharge but then over the past few days he had been constipated. He denies taking anything for his abdominal pain at home. He reports that when he is walking, bending over, or hitting bumps in the care his pain is aggravated. His abdominal pain continued to slowly worsen over the past 4 days, therefore he presented back to the ER for evaluation. Labs were significant for a WBC count of 19,700. CT scan abdomen pelvis was repeated and showed interval improvement in sigmoid diverticulitis with near-complete resolution of the perisigmoid abscess and decreased pericolonic gas associated with contained perforation. The patient was admitted to the Hospitalist service. Our service has been consulted for the sigmoid diverticulitis with perforation. He is now seen on the medical floor. He reports his abdominal pain is being controlled currently with the Cl[place]. Even though his pain increased over the past few days, he states it is still less severe than when he presented to the ER the first time on 11/29/22. Since being admitted, he has had 2 loose bowel movements. He does reports his last few BMs have been muc
--- NOTE | 2022-12-13 10:15 | PM.IMPN ---
Progress Note: A&P Assessment and Plan (1) Diverticulitis of intestine with perforation and abscess: Qualifiers: Diverticulitis bleeding: without bleeding Diverticulitis site: large intestine Qualified Code(s): K57.20 - Diverticulitis of large intestine with perforation and abscess without bleeding Code(s): K57.80 - Diverticulitis of intestine, part unspecified, with perforation and abscess without bleeding Status: Acute Assessment and Plan: Ct of abdomen and pelvis: Sigmoid diverticulitis with perforation Worsening abdominal pain associated with chills and subjective fever WBC elevated at 19.7 upon admission, currently 12.8 Continue Zosyn IV started (12/12/22) blood cultures pending Consult general surgeon thank you for your help NPO except Ice chips Continue normal saline IV 100ml/hr Optimize pain management (2) Obesity, morbid, BMI 40.0-49.9: Code(s): E66.01 - Morbid (severe) obesity due to excess calories Status: Acute Assessment and Plan: advice the patient lifestyle changes, exercise (3) Sepsis: Code(s): A41.9 - Sepsis, unspecified organism Status: Acute Assessment and Plan: Meets SIRS criteria with leukocytosis (19.7), hypothermia (96.2), tachycardia (112) Source of infection: diverticulitis with perforation and abscess IV hydration NACL at 100ml/hr Blood cultures drawn Continue IV Zosyn General surgery consult Plan ? MEDICAL DECISION MAKING NARRATIVE ? History obtained from: Patient ? History from independent sources: General Surgery ? External chart review: Surgery's note, discussed plan with general surgery ? New problems addressed:None ? Chronic illnesses addressed: Obesity, tobacco cessation ? Independent interpretation of studies:CT of the abdomen and pelvis ? Comorbidities complicating care:Obesity ? Diagnostic tests considered but not ordered: KUB ? Risk of complication: Moderate, obesity ? Time spent on encounter: 56 minutes Time Spent With Patient Time: 56 minutes Time with patient: Greater than 35 minutes Subjective Date/time seen: 12/13/22 1015 Interval history: 12/13/22 1015 patient was lying in bed stating that he was doing okay. He did still have some pain however he stated that the pain medicine is helping him. He also stated that he has been having some nausea but mostly last night. He has been tolerating clear liquids and ice chips. he denies any chest pain, shortness a breath, headaches, lightheadedness or dizziness, Sweats, fevers, chills. He did state that most of his abdominal pain is on the left and is radiating to the right. 12/12/22? 23:34 22 years old gentleman with history of morbid obesity, sigmoid diverticulitis and a micro perforation present ED with a chief complaint of worsening left lower quadrant pain, chills, subjective fever.? Patient was admitted to hospital on November 29 and discharged on December 02 because of sigmoid diverticulitis with perforation.? Patient received Zosyn and switch to Augmentin at discharge.? Patient received last dose of Augmentin 3 days ago.? In past 2 days, patient has been feeling worsening left lower quadrant pain also serve as fever and chills, and patient also has nausea denies vomiting diarrhea.? Patient comes back to ED today, patient is found have leukocytosis.? Patient receives cells in ed. ED physician also consulted the general surgeon, general surgeon recommends to admit patient to hospital for further evaluation and management Review of Systems Review of Systems: All systems reviewed & are unremarkable except as noted in HPI and below Exam Narrative: General: well-nourished, well-appearing 22-year-old female, sitting up in bed, comfortable, NARD Neuro: awake, alert and oriented x4, speech clear, no focal neuro deficits noted HEENMT: normocephalic, atraumatic, EOMI, sclerae anicteric, moist oral mucosa Resp
[2022-12-13 14:13] VITALS: BP 132/71; PULSE 71; RESP 18; TEMP 36.5; O2SAT 98
[2022-12-13 22:00] VITALS: BP 151/92; PULSE 81; RESP 20; TEMP 35.8; O2SAT 99
[2022-12-14] MEDS: SODIUM CHLORIDE 0.9% IV 1,000 ML 100 ML IV CONT ×3 (03:05→23:53)
[2022-12-14 06:00] VITALS: BP 134/85; PULSE 66; RESP 18; TEMP 35.6; O2SAT 98
--- NOTE | 2022-12-14 06:11 | PM.PNGS ---
Progress Note: A&P Assessment and Plan (1) Diverticulitis of intestine with perforation and abscess: Qualifiers: Diverticulitis bleeding: without bleeding Diverticulitis site: large intestine Qualified Code(s): K57.20 - Diverticulitis of large intestine with perforation and abscess without bleeding Code(s): K57.80 - Diverticulitis of intestine, part unspecified, with perforation and abscess without bleeding Status: Acute Assessment and Plan: Much improved. Very little pain and tenderness markedly improved as well. Will start clear liquids. Continue IV antibiotics. Subjective Subjective Date/Time Seen: 12/14/22 06:11 Patient reports: feels better, pain is less, no bowel movement and afebrile Review of Systems Review of Systems: All systems reviewed & are unremarkable except as noted in HPI and below (HPI and those items noted below) Constitutional: Constitutional: Denies chills and Denies fever(s) Cardiovascular: Cardiovascular: Denies chest pain, Denies diaphoresis, Denies dyspnea and Denies paroxysmal nocturnal dyspnea Respiratory: Respiratory: Denies chest congestion, Denies cough and Denies dyspnea Integumentary/Breasts: Skin/Breast: Denies lesions and Denies rash Exam Const: General: comfortable and no acute distress; No confusion Orientation/consciousness: patient oriented x3 and No confusion GI: Inspection: normal to inspection, non-distended and obesity GI Palp: Yes Soft to palpation, Yes Tenderness to palpation present (GI) (Minimal tenderness, much better than yesterday.), No Guarding due to palpation present (GI) and No Rebound tenderness present Auscultation: normal bowel sounds Neuro: General: patient oriented x3, no focal motor deficits and No confusion Extrem: General: no calf tenderness and no edema Psych: Affect: normal affect Insight: Good insight present (Psych) Judgement: Good judgement present (Psych) Objective Data Vital Signs Vital Signs: Vital Signs - 24 hr 12/13/22 08:00 12/13/22 14:13 12/13/22 20:00 Temperature 36.5 C Pulse Rate 71 Respiratory Rate 18 Blood Pressure 132/71 Pulse Oximetry 98 Oxygen Delivery Room Air Room Air 12/13/22 22:00 Temperature 35.8 C L Pulse Rate 81 Respiratory Rate 20 Blood Pressure 151/92 H Pulse Oximetry 99 Oxygen Delivery Intake/Output Intake/Output: Intake & Output 0112/12/22 12/13/22 12/14/22 23:59 23:59 23:59 23:59 Intake Total 50 2940 Balance 50 2940 Meds/Results Medications: Active Medications Generic Name Dose Route Start Last Admin Trade Name Freq PRN Reason Stop Dose Admin Acetaminophen 650 mg 12/12/22 23:38 Acetaminophen 325 Mg Tablet PO Q4H PRN Mild Pain (1-3) or Fever Hydrocodone Bitart/Acetaminophen 1 tab 12/12/22 23:38 12/13/22 21:57 Hydrocodone/Acetaminophen (*Crx) 5-325 Mg Tablet PO 1 tab Q4H PRN Administration Moderate Pain (4-6) Enoxaparin Sodium 40 mg 12/13/22 09:00 12/13/22 08:17 Enoxaparin 40 Mg/0.4 Ml Syringe SUB-Q 40 mg DAILY MIKI Administration Piperacillin/Tazobactam/Dextrose 3.375 gm in 50 mls @ 100 mls/hr 12/13/22 03:00 12/14/22 03:05 Zosyn 3.375 Gm/D5w 50ml Pm IVPB 100 mls/hr Q6H MIKI Administration Sodium Chloride 1,000 mls @ 100 mls/hr 12/12/22 23:40 12/14/22 03:05 Normal Saline Iv IV CONT 100 mls/hr .Q10H MIKI Administration Morphine Sulfate 4 mg 12/12/22 23:38 Morphine Sulfate (*Crx) 2 Mg/Ml Inj IV PUSH Q4H PRN Pain Rated 7-10 Naloxone HCl 0.1 mg 12/12/22 23:38 Naloxone Hcl 0.4 Mg/Ml Vial IV PUSH Q2M PRN Opiate Reversal Ondansetron HCl 4 mg 12/12/22 23:38 12/13/22 02:10 Ondansetron Inj 4 Mg/2 Ml Vial IV PUSH 4 mg Q6H PRN Administration Nausea And Vomiting Radiology Results: ITS Impressions Abdomen/Pelvis CT 12/12/22 21:19 IMPRESSION: Interval improving findings associated with the complicated sigmoid dive
[2022-12-14 06:45] LABS: Hematocrit 38.5 % (42.0-52.0); Hemoglobin 12.4 g/dL (14.0-18.0); Mean Corpuscular HGB Conc 32.2 g/dl (32-36); Mean Corpuscular Hemoglobin 26.3 pg (26-34); Mean Corpuscular Volume 81.7 fl (80-100); Mean Platelet Volume 9.9 fl (7.4-10.4); Platelet Count Result 263 k/mm3 (150-375); Red Blood Count 4.71 M/mm3 (4.6-6.20); Red Cell Distribution Width 13.2 % (11.5-14.5); White Blood Count 9.2 K/mm3 (4.5-10.0)
[2022-12-14 06:50] LABS: Anion Gap 4 mmol/L (8-16); Blood Urea Nitrogen 9 mg/dL (9-20); Calcium 8.3 mg/dL (8.4-10.2); Carbon Dioxide 28 mmol/L (22-30); Chloride 102 mmol/L (98-107); Estimated CRCL calculation 147 ml/min; Estimated Glomerular Filt Rate > 60; Glucose 82 mg/dL (65-110); Potassium 3.2 mmol/L (3.4-5.0); Sodium 134 mmol/L (137-145)
[2022-12-14] MEDS: ENOXAPARIN 40 MG/0.4 ML SYRINGE SUB-Q (08:31)
--- NOTE | 2022-12-14 10:00 | PM.IMPN ---
Progress Note: A&P Assessment and Plan (1) Diverticulitis of intestine with perforation and abscess: Qualifiers: Diverticulitis bleeding: without bleeding Diverticulitis site: large intestine Qualified Code(s): K57.20 - Diverticulitis of large intestine with perforation and abscess without bleeding Code(s): K57.80 - Diverticulitis of intestine, part unspecified, with perforation and abscess without bleeding Status: Acute Assessment and Plan: Ct of abdomen and pelvis: Sigmoid diverticulitis with perforation Worsening abdominal pain associated with chills and subjective fever WBC elevated at 19.7 upon admission, currently 9.2 Continue Zosyn IV started (12/12/22) blood cultures NGTD Consult general surgeon thank you for your help Increased to clear liquids Continue normal saline IV 100ml/hr Optimize pain management (2) Obesity, morbid, BMI 40.0-49.9: Code(s): E66.01 - Morbid (severe) obesity due to excess calories Status: Acute Assessment and Plan: advice the patient lifestyle changes, exercise (3) Sepsis: Code(s): A41.9 - Sepsis, unspecified organism Status: Acute Assessment and Plan: Meets SIRS criteria with leukocytosis (19.7), hypothermia (96.2), tachycardia (112) Source of infection: diverticulitis with perforation and abscess IV hydration NACL at 100ml/hr Blood cultures NGTD Continue IV Zosyn General surgery consult Time Spent With Patient Time: ? MEDICAL DECISION MAKING NARRATIVE ? History obtained from:? Patient ? History from independent sources: none ? External chart review: Surgery's note ? New problems addressed:appetite ? Chronic illnesses addressed:? Obesity, tobacco cessation ? Independent interpretation of studies: Labs and vital signs ? Comorbidities complicating care: Obesity ? Diagnostic tests considered but not ordered: KUB? ? Risk of complication:? Moderate, obesity ? Time spent on encounter:? 48 minutes Time with patient: Greater than 35 minutes Subjective Date/time seen: 12/14/22 1000 Interval history: 12/14/22 1000 Patient is laying in bed. He denies any current pain. He currently is able to tolerate clear liquids. He denies any chest pain shortness of breath, nausea, vomiting, diarrhea, or constipation. He did state that he did not like broth. Gave him some popsicles, which he stated he would like better. 01/26/23 1015 patient was lying in bed stating that he was doing okay. He did still have some pain however he stated that the pain medicine is helping him. He also stated that he has been having some nausea but mostly last night. He has been tolerating clear liquids and ice chips. he denies any chest pain, shortness a breath, headaches, lightheadedness or dizziness, Sweats, fevers, chills. He did state that most of his abdominal pain is on the left and is radiating to the right. 12/12/22? 23:34 22 years old gentleman with history of morbid obesity, sigmoid diverticulitis and a micro perforation present ED with a chief complaint of worsening left lower quadrant pain, chills, subjective fever.? Patient was admitted to hospital on November 29 and discharged on December 02 because of sigmoid diverticulitis with perforation.? Patient received Zosyn and switch to Augmentin at discharge.? Patient received last dose of Augmentin 3 days ago.? In past 2 days, patient has been feeling worsening left lower quadrant pain also serve as fever and chills, and patient also has nausea denies vomiting diarrhea.? Patient comes back to ED today, patient is found have leukocytosis.? Patient receives cells in ed. ED physician also consulted the general surgeon, general surgeon recommends to admit patient to hospital for further evaluation and management Review of Systems Review of Systems: All systems reviewed & are unremarkable except as noted in HPI and below Exam Narrative: General:? w
[2022-12-14] MEDS: POTASSIUM CHLORIDE 20 MEQ TABLET 40 MEQ PO (12:33)
[2022-12-14 14:00] VITALS: BP 149/83; PULSE 56; RESP 18; TEMP 35.7; O2SAT 99
[2022-12-14] MEDS: POTASSIUM CHLORIDE 20 MEQ TABLET.ER 40 MEQ PO (17:42)
[2022-12-14] MEDS: HYDROcodone/acetaminophen (*CRX) 5-325 MG TABLET 1 TAB PO (21:24)
[2022-12-14 22:00] VITALS: BP 137/75; PULSE 88; RESP 14; TEMP 35.8; O2SAT 98
[2022-12-15 06:00] VITALS: BP 129/75; PULSE 60; RESP 16; TEMP 36.1; O2SAT 99
[2022-12-15 06:58] LABS: Hematocrit 40.9 % (42.0-52.0); Hemoglobin 12.9 g/dL (14.0-18.0); Mean Corpuscular HGB Conc 31.5 g/dl (32-36); Mean Corpuscular Hemoglobin 25.8 pg (26-34); Mean Corpuscular Volume 81.8 fl (80-100); Mean Platelet Volume 10.2 fl (7.4-10.4); Platelet Count Result 253 k/mm3 (150-375); Red Cell Distribution Width 13.3 % (11.5-14.5); White Blood Count 6.9 K/mm3 (4.5-10.0)
[2022-12-15 07:14] LABS: Anion Gap 7 mmol/L (8-16); Blood Urea Nitrogen 7 mg/dL (9-20); Calcium 8.4 mg/dL (8.4-10.2); Carbon Dioxide 24 mmol/L (22-30); Chloride 104 mmol/L (98-107); Estimated CRCL calculation 147 ml/min; Estimated Glomerular Filt Rate > 60; Glucose 82 mg/dL (65-110); Potassium 3.5 mmol/L (3.4-5.0); Sodium 135 mmol/L (137-145)
--- NOTE | 2022-12-15 09:45 | PM.IMPN ---
Progress Note: A&P Assessment and Plan (1) Diverticulitis of intestine with perforation and abscess: Qualifiers: Diverticulitis bleeding: without bleeding Diverticulitis site: large intestine Qualified Code(s): K57.20 - Diverticulitis of large intestine with perforation and abscess without bleeding Code(s): K57.80 - Diverticulitis of intestine, part unspecified, with perforation and abscess without bleeding Status: Acute Assessment and Plan: Ct of abdomen and pelvis: Sigmoid diverticulitis with perforation Worsening abdominal pain associated with chills and subjective fever WBC elevated at 19.7 upon admission, currently 6.9 Continue Zosyn IV started (12/12/22) blood cultures NGTD Consult general surgeon thank you for your help Increased to clear liquids, GS to advance as indicated Continue normal saline IV 100ml/hr Optimize pain management (2) Obesity, morbid, BMI 40.0-49.9: Code(s): E66.01 - Morbid (severe) obesity due to excess calories Status: Acute Assessment and Plan: advice the patient lifestyle changes, exercise (3) Sepsis: Code(s): A41.9 - Sepsis, unspecified organism Status: Acute Assessment and Plan: Meets SIRS criteria with leukocytosis (19.7), hypothermia (96.2), tachycardia (112) Source of infection: diverticulitis with perforation and abscess IV hydration NACL at 100ml/hr Blood cultures NGTD Continue IV Zosyn General surgery consult Resolved and stable at this time Time Spent With Patient Time: 36 minutes Time with patient: Greater than 35 minutes Subjective Date/time seen: 12/15/2245 Interval history: 12/15/22944 Patient was walking around the room. He stated that he was feeling ok. He stated that he is still having pain in his lower abdomen, which he stated was relieved when he has a bowel movement. He does report having a BM today. He did state that his stool is loose. He denies any chest pain, shortness of breath, nausea, vomiting, weakness, or fatigue. 12/14/22 1000 Patient is laying in bed. He denies any current pain. He currently is able to tolerate clear liquids. He denies any chest pain shortness of breath, nausea, vomiting, diarrhea, or constipation. He did state that he did not like broth. Gave him some popsicles, which he stated he would like better. 12/13/22 1015 patient was lying in bed stating that he was doing okay. He did still have some pain however he stated that the pain medicine is helping him. He also stated that he has been having some nausea but mostly last night. He has been tolerating clear liquids and ice chips. he denies any chest pain, shortness a breath, headaches, lightheadedness or dizziness, Sweats, fevers, chills. He did state that most of his abdominal pain is on the left and is radiating to the right. 12/12/22? 23:34 22 years old gentleman with history of morbid obesity, sigmoid diverticulitis and a micro perforation present ED with a chief complaint of worsening left lower quadrant pain, chills, subjective fever.? Patient was admitted to hospital on November 29 and discharged on December 02 because of sigmoid diverticulitis with perforation.? Patient received Zosyn and switch to Augmentin at discharge.? Patient received last dose of Augmentin 3 days ago.? In past 2 days, patient has been feeling worsening left lower quadrant pain also serve as fever and chills, and patient also has nausea denies vomiting diarrhea.? Patient comes back to ED today, patient is found have leukocytosis.? Patient receives cells in ed. ED physician also consulted the general surgeon, general surgeon recommends to admit patient to hospital for further evaluation and management Review of Systems Review of Systems: All systems reviewed & are unremarkable except as noted in HPI and below Exam Narrative: General:? well-nourished, well-appearing 22-year-old f
[2022-12-15] MEDS: POTASSIUM CHLORIDE 20 MEQ TABLET.ER 40 MEQ PO ×2 (09:49→16:30)
--- NOTE | 2022-12-15 12:28 | PM.PNGS ---
Progress Note: A&P Assessment and Plan (1) Diverticulitis of intestine with perforation and abscess: Qualifiers: Diverticulitis bleeding: without bleeding Diverticulitis site: large intestine Qualified Code(s): K57.20 - Diverticulitis of large intestine with perforation and abscess without bleeding Code(s): K57.80 - Diverticulitis of intestine, part unspecified, with perforation and abscess without bleeding Status: Acute Assessment and Plan: exam largely benign, anthony clears, will start low fiber diet, cont abx Subjective Subjective Date/Time Seen: 12/15/22 12:28 feels better today, still some mild tenderness but improved, anthony clears Review of Systems Review of Systems: All systems reviewed & are unremarkable except as noted in HPI and below Exam Const: General: cooperative, comfortable and no acute distress Resp: Auscultation: clear to auscultation bilaterally Cardio: Rate: regular rate Rhythm: regular rhythm GI: Inspection: normal to inspection and non-distended GI Palp: Yes abdominal tenderness, Yes Soft to palpation, Yes Tenderness to palpation present (GI), No Guarding due to palpation present (GI) and No Rigid due to palpation Objective Data Vital Signs Vital Signs: Vital Signs - 24 hr 12/14/22 14:00 12/14/22 22:00 12/15/22 06:00 Temperature 35.7 C L 35.8 C L 36.1 C L Pulse Rate 56 L 88 60 Respiratory Rate 18 14 16 Blood Pressure 149/83 H 137/75 129/75 Pulse Oximetry 99 98 99 Intake/Output Intake/Output: Intake & Output 12/12/22 12/13/22 12/14/22 12/15/22 23:59 23:59 23:59 23:59 Intake Total 50 2940 3140 600 Balance 50 2940 3140 600 Meds/Results Medications: Active Medications Generic Name Dose Route Start Last Admin Trade Name Freq PRN Reason Stop Dose Admin Acetaminophen 650 mg 12/12/22 23:38 Acetaminophen 325 Mg Tablet PO Q4H PRN Mild Pain (1-3) or Fever Hydrocodone Bitart/Acetaminophen 1 tab 12/12/22 23:38 12/14/22 21:24 Hydrocodone/Acetaminophen (*Crx) 5-325 Mg Tablet PO 1 tab Q4H PRN Administration Moderate Pain (4-6) Enoxaparin Sodium 40 mg 12/13/22 09:00 12/15/22 09:49 Enoxaparin 40 Mg/0.4 Ml Syringe SUB-Q Not Given DAILY MIKI Piperacillin/Tazobactam/Dextrose 3.375 gm in 50 mls @ 100 mls/hr 12/13/22 03:00 12/15/22 10:21 Zosyn 3.375 Gm/D5w 50ml Pm IVPB Infused Q6H MIKI Infusion Sodium Chloride 1,000 mls @ 100 mls/hr 12/12/22 23:40 12/14/22 23:53 Normal Saline Iv IV CONT 100 mls/hr .Q10H MIKI Administration Morphine Sulfate 4 mg 12/12/22 23:38 Morphine Sulfate (*Crx) 2 Mg/Ml Inj IV PUSH Q4H PRN Pain Rated 7-10 Naloxone HCl 0.1 mg 12/12/22 23:38 Naloxone Hcl 0.4 Mg/Ml Vial IV PUSH Q2M PRN Opiate Reversal Ondansetron HCl 4 mg 12/12/22 23:38 12/13/22 02:10 Ondansetron Inj 4 Mg/2 Ml Vial IV PUSH 4 mg Q6H PRN Administration Nausea And Vomiting Potassium Chloride 40 meq 12/14/22 17:00 12/15/22 09:49 Potassium Chloride 20 Meq Tablet.Er PO 40 meq BIDWM MIKI Administration Radiology Results: ITS Impressions Abdomen/Pelvis CT 12/12/22 21:19 IMPRESSION: Interval improving findings associated with the complicated sigmoid diverticulitis. Near-complete interval resolution of the perisigmoid abscess. Decreased pericolonic gas associated with the contained microperforation. Labs Labs: Laboratory Results - last 24 hr 12/15/22 12/15/22 05:48 05:48 WBC 6.9 RBC 5.00 Hgb 12.9 L Hct 40.9 L MCV 81.8 MCH 25.8 L MCHC 31.5 L RDW 13.3 Plt Count 253 MPV 10.2 Sodium 135 L Potassium 3.5 Chloride 104 Carbon Dioxide 24 Anion Gap 7 L BUN 7 L Creatinine 1.00 Estim Creat Clear Calc 147 Estimated GFR > 60 Glucose 82 Calcium 8.4
[2022-12-15 14:00] VITALS: BP 132/82; PULSE 69; RESP 14; TEMP 36.2; O2SAT 98
[2022-12-15] MEDS: SODIUM CHLORIDE 0.9% IV 1,000 ML 100 ML IV CONT (21:41)
[2022-12-15 22:00] VITALS: BP 165/108; PULSE 92; RESP 18; TEMP 36.2; O2SAT 100
[2022-12-16 06:00] VITALS: BP 147/100; PULSE 72; RESP 18; TEMP 36.4; O2SAT 100
[2022-12-16 06:02] LABS: Basophils Percent Auto 0.5 % (0.2-1.2); Eosinophils Absolute Auto 0.2 K/mm3 (0-0.3); Eosinophils Percent Auto 2.2 % (0-4.4); Hemoglobin 13.7 g/dL (14.0-18.0); Immature Granulocyte Absolute 0.03 K/mm3 (0.00-0.031); Immature Granulocyte Percent A 0.4 % (0-0.5); Lymphocytes Absolute Auto 2.64 K/mm3 (0.9-3.2); Lymphocytes Percent Auto 30.8 % (18.3-44.2); Mean Corpuscular HGB Conc 31.1 g/dl (32-36); Mean Corpuscular Hemoglobin 26.1 pg (26-34); Monocytes Absolute Auto 0.5 K/mm3 (0.1-0.6); Monocytes Percent Auto 6.3 % (2.6-8.5); Neutrophils Absolute Auto 5.1 K/mm3 (1.3-6.7); Neutrophils Percent Auto 59.8 % (45.5-73.1); Platelet Count Result 312 k/mm3 (150-375); Red Blood Count 5.24 M/mm3 (4.6-6.20); Red Cell Distribution Width 13.3 % (11.5-14.5); White Blood Count 8.6 K/mm3 (4.5-10.0)
[2022-12-16 06:10] LABS: Alanine Aminotransferase 17 U/L (6-50); Albumin Level 3.8 g/dL (3.5-5.1); Alkaline Phosphatase 94 U/L (38-126); Anion Gap 9 mmol/L (8-16); Aspartate Amino Transferase 29 U/L (17-59); Bilirubin,Total 0.5 mg/dL (0.2-1.3); Blood Urea Nitrogen 7 mg/dL (9-20); Calcium 8.8 mg/dL (8.4-10.2); Carbon Dioxide 24 mmol/L (22-30); Chloride 106 mmol/L (98-107); Estimated CRCL calculation 135 ml/min; Estimated Glomerular Filt Rate > 60; Glucose 79 mg/dL (65-110); Magnesium 2.1 mg/dL (1.6-2.3); Potassium 3.9 mmol/L (3.4-5.0); Sodium 139 mmol/L (137-145)
--- NOTE | 2022-12-16 07:20 | PM.IMPN ---
Progress Note: A&P Assessment and Plan (1) Diverticulitis of intestine with perforation and abscess: Qualifiers: Diverticulitis bleeding: without bleeding Diverticulitis site: large intestine Qualified Code(s): K57.20 - Diverticulitis of large intestine with perforation and abscess without bleeding Code(s): K57.80 - Diverticulitis of intestine, part unspecified, with perforation and abscess without bleeding Status: Acute Assessment and Plan: Ct of abdomen and pelvis: Sigmoid diverticulitis with perforation Worsening abdominal pain associated with chills and subjective fever WBC elevated at 19.7 upon admission, currently 8.6 Continue Zosyn IV started (12/12/22) blood cultures NGTD Consult general surgeon thank you for your help Increased low fiber, GS to advance as indicated Continue normal saline IV 100ml/hr, stop at this time since he is taking adequate fluid intake Optimize pain management (2) Obesity, morbid, BMI 40.0-49.9: Code(s): E66.01 - Morbid (severe) obesity due to excess calories Status: Acute Assessment and Plan: advice the patient lifestyle changes, exercise (3) Sepsis: Code(s): A41.9 - Sepsis, unspecified organism Status: Acute Assessment and Plan: Meets SIRS criteria with leukocytosis (19.7), hypothermia (96.2), tachycardia (112) Source of infection: diverticulitis with perforation and abscess IV hydration NACL at 100ml/hr Blood cultures NGTD Continue IV Zosyn General surgery consult Resolved and stable at this time (4) Hypertension: Code(s): I10 - Essential (primary) hypertension Status: Acute Assessment and Plan: BP this am is 147/100 Secondary to pain, disease process, or anxiety Continue to trend Hold on correction Add PRN hydralazine Time Spent With Patient Time: ? MEDICAL DECISION MAKING NARRATIVE ? History obtained from: Patient ? History from independent sources: GS ? External chart review: BP trends from past ? New problems addressed: HTN ? Chronic illnesses addressed: none ? Independent interpretation of studies: Labs review, previous imaging ? Comorbidities complicating care: obesity ? Diagnostic tests considered but not ordered: lipid panel, KUB ? Risk of complication: High ? Time spent on encounter: 53 minutes Time with patient: Greater than 35 minutes Subjective Date/time seen: 12/16/22 07:20 Interval history: 12/16/22 12/15/22 0945 Patient was walking around the room. He stated that he was feeling ok. He stated that he is still having pain in his lower abdomen, which he stated was relieved when he has a bowel movement. He does report having a BM today. He did state that his stool is loose. He denies any chest pain, shortness of breath, nausea, vomiting, weakness, or fatigue. 12/14/22 1000 Patient is laying in bed. He denies any current pain. He currently is able to tolerate clear liquids. He denies any chest pain shortness of breath, nausea, vomiting, diarrhea, or constipation. He did state that he did not like broth. Gave him some popsicles, which he stated he would like better. 12/13/22 1015 patient was lying in bed stating that he was doing okay. He did still have some pain however he stated that the pain medicine is helping him. He also stated that he has been having some nausea but mostly last night. He has been tolerating clear liquids and ice chips. he denies any chest pain, shortness a breath, headaches, lightheadedness or dizziness, Sweats, fevers, chills. He did state that most of his abdominal pain is on the left and is radiating to the right. 12/12/22? 23:34 22 years old gentleman with history of morbid obesity, sigmoid diverticulitis and a micro perforation present ED with a chief complaint of worsening left lower quadrant pain, chills, subjective fever.? Patient was admitted to
[2022-12-16 07:45] VITALS: BP 137/92
[2022-12-16] MEDS: hydrALAZINE HCL 20 MG/ML VIAL 10 MG IV PUSH (07:50)
[2022-12-16] MEDS: POTASSIUM CHLORIDE 20 MEQ TABLET.ER 40 MEQ PO (07:59)
[2022-12-16 09:36] VITALS: BP 162/78
--- NOTE | 2022-12-16 10:00 | PM.DS ---
DS: Admitting Diagnosis Discharge Date 12/16/22 1000 Admitting Diagnosis Diverticulitis with perforation abscess DS: Discharge Diagnosis Discharge Diagnosis (1) Diverticulitis of intestine with perforation and abscess: Qualifiers: Diverticulitis bleeding: without bleeding Diverticulitis site: large intestine Qualified Code(s): K57.20 - Diverticulitis of large intestine with perforation and abscess without bleeding Code(s): K57.80 - Diverticulitis of intestine, part unspecified, with perforation and abscess without bleeding Status: Acute Assessment and Plan: Ct of abdomen and pelvis: Sigmoid diverticulitis with perforation Worsening abdominal pain associated with chills and subjective fever WBC elevated at 19.7 upon admission, currently 8.6 Continue Zosyn IV started (12/12/22) blood cultures NGTD Consult general surgeon thank you for your help Increased low fiber, GS to advance as indicated Continue normal saline IV 100ml/hr, stop at this time since he is taking adequate fluid intake Optimize pain management (2) Obesity, morbid, BMI 40.0-49.9: Code(s): E66.01 - Morbid (severe) obesity due to excess calories Status: Acute Assessment and Plan: advice the patient lifestyle changes, exercise (3) Sepsis: Code(s): A41.9 - Sepsis, unspecified organism Status: Acute Assessment and Plan: Meets SIRS criteria with leukocytosis (19.7), hypothermia (96.2), tachycardia (112) Source of infection: diverticulitis with perforation and abscess IV hydration NACL at 100ml/hr Blood cultures NGTD Continue IV Zosyn General surgery consult Resolved and stable at this time (4) Hypertension: Code(s): I10 - Essential (primary) hypertension Status: Acute Assessment and Plan: BP this am is 147/100 Secondary to pain, disease process, or anxiety Continue to trend Hold on correction Add PRN hydralazine DS: Summary Hospital Course Hospital Course: patient is a 22-year-old male with a past medical history of obesity, sigmoid diverticulitis with micro for who presented the ED with complaints of worsening left lower quadrant pain, Chills, fever. patient had recently been admitted and was treated for the same thing in the middle of November however after the antibiotic course has been completed patient was exhibiting symptoms again. Upon arrival patient was noted to have an elevated white count of 19 7. Patient was started on IV Zosyn and IV fluids. Patient was also placed on clear liquid diet. Patient has been doing well since IV antibiotics and fluids. Cultures were drawn and showed no growth today. Patient did meet sepsis criteria was SIRS. Patient has been doing well. He still does have some his pain however is mostly related to when he was have a bowel movement. He did state that he is having a bowel movement however he states he is not fully getting everything out and has to go back shortly thereafter. He also stated that his abdominal pain or pressure goes away when he has a bowel movement. He currently denies any chest pain, shortness a breath, nausea, vomiting, sweats, fevers, chills. Currently patient is stable for discharge for labs and vital signs. Education and questions have been answered patient verbalizes understanding. Status at Discharge Functional status at discharge: independent ambulation Overall status at discharge: patient is progressing back to baseline Time Spent with Patient Time attestation: Total time spent providing and/or coordinating discharge services: 43 minutes Time spent: Greater than 30 minutes Specific discharge activities: Diagnostic testing, chart review, developing a treatment plan, education, care coordination documentation, physical exam, result review Exam Narrative: General:? well-nourished, well-appearing 22-year-old male,? standing by the bed, comforta
--- NOTE | 2022-12-16 12:03 | PM.PNGS ---
Progress Note: A&P Assessment and Plan (1) Diverticulitis of intestine with perforation and abscess: Qualifiers: Diverticulitis bleeding: without bleeding Diverticulitis site: large intestine Qualified Code(s): K57.20 - Diverticulitis of large intestine with perforation and abscess without bleeding Code(s): K57.80 - Diverticulitis of intestine, part unspecified, with perforation and abscess without bleeding Status: Acute Assessment and Plan: doing well, exam benign, anthony diet, +bowel fxn, home c low fiber diet and po abx, f/u 2 wks Subjective Subjective Date/Time Seen: 12/16/22 12:03 feels good, anthony low fiber diet, having soft BMs Review of Systems Review of Systems: All systems reviewed & are unremarkable except as noted in HPI and below Exam Const: General: cooperative, comfortable and no acute distress Resp: Auscultation: clear to auscultation bilaterally Cardio: Rate: regular rate Rhythm: regular rhythm GI: Inspection: normal to inspection and non-distended GI Palp: No abdominal tenderness, Yes Soft to palpation, No Tenderness to palpation present (GI), No Guarding due to palpation present (GI) and No Rigid due to palpation Objective Data Vital Signs Vital Signs: Vital Signs - 24 hr 12/15/22 14:00 12/15/22 22:00 12/16/22 06:00 Temperature 36.2 C L 36.2 C L 36.4 C L Pulse Rate 69 92 72 Respiratory Rate 14 18 18 Blood Pressure 132/82 165/108 H 147/100 H Pulse Oximetry 98 100 100 12/16/22 07:45 12/16/22 09:36 Temperature Pulse Rate Respiratory Rate Blood Pressure 137/92 H 162/78 H Pulse Oximetry Intake/Output Intake/Output: Intake & Output 12/13/22 12/14/22 12/15/22 12/16/22 23:59 23:59 23:59 23:59 Intake Total 2940 3140 2890 580 Balance 2940 3140 2890 580 Meds/Results Medications: Active Medications Generic Name Dose Route Start Last Admin Trade Name Freq PRN Reason Stop Dose Admin Acetaminophen 650 mg 12/12/22 23:38 Acetaminophen 325 Mg Tablet PO Q4H PRN Mild Pain (1-3) or Fever Hydrocodone Bitart/Acetaminophen 1 tab 12/12/22 23:38 12/14/22 21:24 Hydrocodone/Acetaminophen (*Crx) 5-325 Mg Tablet PO 1 tab Q4H PRN Administration Moderate Pain (4-6) Enoxaparin Sodium 40 mg 12/13/22 09:00 12/16/22 07:53 Enoxaparin 40 Mg/0.4 Ml Syringe SUB-Q Not Given DAILY MIKI Hydralazine HCl 10 mg 12/16/22 07:24 12/16/22 07:50 Hydralazine Hcl 20 Mg/Ml Vial IV PUSH 10 mg Q8H PRN Administration Blood Pressure - High Piperacillin/Tazobactam/Dextrose 3.375 gm in 50 mls @ 100 mls/hr 12/13/22 03:00 12/16/22 08:29 Zosyn 3.375 Gm/D5w 50ml Pm IVPB Infused Q6H MIKI Infusion Morphine Sulfate 4 mg 12/12/22 23:38 Morphine Sulfate (*Crx) 2 Mg/Ml Inj IV PUSH Q4H PRN Pain Rated 7-10 Naloxone HCl 0.1 mg 12/12/22 23:38 Naloxone Hcl 0.4 Mg/Ml Vial IV PUSH Q2M PRN Opiate Reversal Ondansetron HCl 4 mg 12/12/22 23:38 12/13/22 02:10 Ondansetron Inj 4 Mg/2 Ml Vial IV PUSH 4 mg Q6H PRN Administration Nausea And Vomiting Potassium Chloride 40 meq 12/14/22 17:00 12/16/22 07:59 Potassium Chloride 20 Meq Tablet.Er PO 40 meq BIDWM MIKI Administration Radiology Results: ITS Impressions Abdomen/Pelvis CT 12/12/22 21:19 IMPRESSION: Interval improving findings associated with the complicated sigmoid diverticulitis. Near-complete interval resolution of the perisigmoid abscess. Decreased pericolonic gas associated with the contained microperforation. Labs Labs: Laboratory Results - last 24 hr 12/16/22 12/16/22 05:02 05:02 WBC 8.6 RBC 5.24 Hgb 13.7 L Hct 44.0 MCV 84.0 MCH 26.1 MCHC 31.1 L RDW 13.3 Plt Count 312 MPV 10.0 Immature Gran % (Auto) 0.4 Neut % (Auto) 59.8 Lymph % (Auto) 30.8 [place] % (Auto) 6.3 Eos % (Auto) 2.2 Baso % (Auto) 0.5 Lymph # (Auto) 2.64 [place] # (Auto) 0.5 Eos # (Auto)
== END 2022-12-16 12:40 | disposition home or self-care (01) | DRG 872 ==
LOC: ANHED 23:03 → ANH3MEDSUR 12-13 00:19
PROVIDERS: Nurse Practitioner Family; Surgery; Admitting Provider Hospitalist; Emergency Provider Emergency Medicine; PCP Student in an Organized Health Care Education/Training Program; Visit Provider Nurse Practitioner
DX: A41.9 Sepsis, unspecified organism (principal); K57.20 Diverticulitis of large intestine with perforation and abscess without bleeding; Z68.41 Body mass index [BMI] 40.0-44.9, adult; E66.01 Morbid (severe) obesity due to excess calories; I10 Essential (primary) hypertension; F17.290 Nicotine dependence, other tobacco product, uncomplicated; Z20.822 Contact with and (suspected) exposure to COVID-19
CPT/HCPCS: 36415; 74177; 80048; 80053; 81001; 83690; 83735; 85025; 85027; 87040; 87637; 96361; 96365; 96366; 96375; 99285; A9270; G0378; J0360; J1650; J2270; J2405; J2543; J7030; Q9967

== ENCOUNTER 2023-05-17 00:31 | Day surgery (SDC) | payer OTHER, SELFPAY ==
[2023-05-13 10:32] VITALS: BMI 41.5
[2023-05-17 10:13] VITALS: BP 142/96; PULSE 85; RESP 20; TEMP 36.2; O2SAT 98
--- NOTE | 2023-05-17 10:22 | P.PNAN_ITS ---
Anes - Initial Pre Proc Eval Procedure: Operation Date: 05/17/23 13:00 Proposed Procedures p Colonoscopy - Alfredo Parish MD Date/Time: 05/17/23 10:22 Surgeon: Alfredo Parish MD Pre Op Diagnosis: Diverticulitis of large intestine with perforation Patient Data Age: 22 Gender: M Height: 1.83 m Weight: 136.8 kg Last Vital Signs Temp 97.1 F L 05/17/23 10:13 Pulse 85 05/17/23 10:13 Resp 20 05/17/23 10:13 BP 142/96 H 05/17/23 10:13 Pulse Ox 98 05/17/23 10:13 O2 Del Method Room Air 05/17/23 10:13 Allergies Allergy/AdvReac Type Severity Reaction Status Date / Time No Known Drug Allergies Allergy Unknown Unknown Verified 05/13/23 10:45 Home Medications Medication Instructions Recorded Confirmed Type ondansetron 4 mg disintegrating 4 mg PO PRN PRN Migraine Headache 05/13/23 05/13/23 History tablet sumatriptan succinate 50 mg tablet 50 mg PO PRN PRN Migraine Headache 05/13/23 05/13/23 History Patient hx anesthesia problems: none Family hx anesthesia problems: none Results Review: All pre-operative results and documents have been reviewed as part of the pre- operative evaluation. [facility] Past Medical History Medical History No significant past medical history Surgical History Surgical History No pertinent past surgical history Family History Family History Father Diverticulitis large intestine Grandparent Diverticulitis large intestine Other Diverticulitis large intestine Social History Social History (Updated 12/25/22 @ 09:37 by Karol Walters) Smoking status: Never smoker Second hand tobacco smoke exposure: No Additional smoking assessment comments: social THC smoker Alcohol intake: never Substance use: current Substance use type: marijuana Other substance usage details: daily use vape pen Last use: 11/29/22 Lack of Transportation: No Lack of Food: Never True Current Housing: I Have Housing Concerned About Future Housing: No Difficulty Paying Gas/Electric Bills: No Difficulty Paying for Meds: No Currently Unemployed: No Education: Associate Degree Difficulty w/ Childcare or Family Care: No Living arrangements: with family Spiritual care concerns: No Anes - Eval Final PreProcedure Day of Procedure 05/17/23 10:22 Patient weight: morbidly obese Heart: regular rate and rhythm Lungs: clear to auscultation Airway: Mallampati scale class II Neurological: alert and oriented Last oral intake: >/= 8 hours ASA classification: III Emergent: no Anesthetic plan: proceed Anesthesia type and monitoring: general GIVS and standard monitoring Results Review: All pre-operative results and documents have been reviewed as part of the pre- operative evaluation. Informed Consent: The patient's anesthetic plan and its attendant risks and benefits were discussed with the patient/family/POA. Questions were solicited and answers provided to the satisfaction of the patient/family/POA.
[2023-05-17] MEDS: LACTATED RINGERS 1,000 ML 150 ML IV CONT (10:23)
--- NOTE | 2023-05-17 10:35 | PM.HPGS ---
History of Present Illness History of Present Illness Consent: Risks, benefits, and alternatives have been discussed and questions answered. Patient agrees to proceed with procedure. Chief complaint: Diverticulitis of large intestine with perforation Narrative: Shaw Fuentes is a 22 year old male here with history of diverticulitis earlier this year, first colonoscopy Review of Systems Constitutional: Constitutional: Denies headache(s) and Denies weakness Eyes: Eyes: Denies blurry vision ENT: Reports Normal hearing present, Denies headache(s) and Denies neck pain Cardiovascular: Cardiovascular: Denies chest pain and Denies dyspnea Respiratory: Respiratory: Denies dyspnea Gastrointestinal: Gastrointestinal: Reports no additional gastrointestinal complaints Genitourinary: Genitourinary: Denies dysuria Musculoskeletal: Musculoskeletal: Denies neck pain Integumentary/Breasts: Skin/Breast: Denies dry skin Neurologic: Reports Normal hearing present, Denies headache(s) and Denies weakness Psychiatric: Psychiatric: Denies anxiety Endocrine: Endocrine: Denies change in body appearance Hematologic/Lymphatic: Hematologic/Lymphatic: Denies easy bleeding Allergic/Immunologic: Allergic/Immunologic: Denies urticaria PMF Past Medical History Medical History No significant past medical history Surgical History Surgical History No pertinent past surgical history Family History Family History Father Diverticulitis large intestine Grandparent Diverticulitis large intestine Other Diverticulitis large intestine Social History Social History (Updated 12/25/22 @ 09:37 by Karol Walters) Smoking status: Never smoker Second hand tobacco smoke exposure: No Additional smoking assessment comments: social THC smoker Alcohol intake: never Substance use: current Substance use type: marijuana Other substance usage details: daily use vape pen Last use: 11/29/22 Lack of Transportation: No Lack of Food: Never True Current Housing: I Have Housing Concerned About Future Housing: No Difficulty Paying Gas/Electric Bills: No Difficulty Paying for Meds: No Currently Unemployed: No Education: Associate Degree Difficulty w/ Childcare or Family Care: No Living arrangements: with family Spiritual care concerns: No Meds Home Medications and Allergies Home Medications Medication Instructions Recorded Confirmed Type ondansetron 4 mg disintegrating 4 mg PO PRN PRN Migraine Headache 05/13/23 05/17/23 History tablet sumatriptan succinate 50 mg tablet 50 mg PO PRN PRN Migraine Headache 05/13/23 05/17/23 History Allergies Allergy/AdvReac Type Severity Reaction Status Date / Time No Known Drug Allergies Allergy Unknown Unknown Verified 05/17/23 10:24 Vital Signs Vital Signs - 24 hr 05/17/23 10:13 Temperature 97.1 F L Pulse Rate 85 Respiratory Rate 20 Blood Pressure 142/96 H Pulse Oximetry 98 Oxygen Delivery Room Air Exam Const: General: comfortable and no acute distress Nutritional Appearance: obese HENMT: Face/Nose/Sinus: Normal nares present Eyes: General: appearance normal, both eyes and all related structures Neck: Neck: no JVD Resp: Auscultation: clear to auscultation bilaterally Cardio: Rate: regular rate Rhythm: regular rhythm GI: Inspection: non-distended GI Palp: Yes Soft to palpation Skin: General skin exam: normal color Neuro: General: gait normal Speech: normal speech Extrem: General: normal to inspection Psych: Mental Status: mental status grossly normal Assessment and Plan Assessment and plan (1) Diverticulitis of intestine with perforation and abscess: Qualifiers: Diverticulitis bleeding: without bleeding Diverticulitis site: large intest
[2023-05-17 10:49] VITALS: BP 112/74; PULSE 83; RESP 22; O2SAT 99
[2023-05-17 10:59] VITALS: BP 117/75; PULSE 77; RESP 18; O2SAT 98
[2023-05-17 11:09] VITALS: BP 114/74; PULSE 67; RESP 18; O2SAT 98
== END 2023-05-17 11:11 | disposition home or self-care (01) ==
PROVIDERS: PCP Student in an Organized Health Care Education/Training Program; Visit Provider Internal Medicine Gastroenterology
PROC: 0DJD8ZZ Inspection of Lower Intestinal Tract, Via Natural or Artificial Opening Endoscopic (ICD-10-PCS; CPT 45378; principal; 2023-05-17 13:00)
DX: Z09 Encounter for follow-up examination after completed treatment for conditions other than malignant neoplasm (principal); K57.30 Diverticulosis of large intestine without perforation or abscess without bleeding; Z87.19 Personal history of other diseases of the digestive system; F12.90 Cannabis use, unspecified, uncomplicated; E66.01 Morbid (severe) obesity due to excess calories; Z68.41 Body mass index [BMI] 40.0-44.9, adult
CPT/HCPCS: 45378; J2704; J7120

== ENCOUNTER 2023-08-30 08:38 | Emergency (ER) | payer OTHER, SELFPAY ==
--- NOTE | ~2023-08-30 | XR_ITS ---
EXAMINATION: XR tibia fibula RT 2V DATE: 08/30/2023 09:52 INDICATION: Right lower leg dog bite. TECHNIQUE: 2 views of right tibia and fibula on 4 radiographs were obtained. COMPARISON: Right knee radiographs 01/15/2012 FINDINGS: Bone alignment is normal. No fracture. 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 Joint space s are normal. No knee joint effusion. There is a laceration of the posterior calf. No radiopaque fore ign body. IMPRESSION: 1. No radiopaque foreign body. Reviewed, dictated and finalized at location A.
[2023-08-30 08:40] VITALS: BP 172/100; PULSE 109; RESP 16; TEMP 36.8; O2SAT 99
--- NOTE | 2023-08-30 10:00 | ED.WOUNDLAC ---
HPI - Wound/Laceration General Chief Complaint: Wound/Laceration Stated Complaint: dog bite Time Seen by Provider: 08/30/23 09:11 Source: patient Mode of arrival: ambulatory Limitations: no limitations History of Present Illness HPI narrative: This is a 22 year old male that presents to the ER for a dog bite to the right calf. Patient reports he was at the dog bite. His dog and another dog were fighting and he tried to break it up. Sustained bite to his right leg. Reports bleeding and pain to the area. Unsure of the dog's vaccination status. Denies decreased ROM or numbness. Related Data Home Medications Medication Instructions Recorded Confirmed ondansetron 4 mg disintegrating 4 mg PO PRN PRN Migraine Headache 05/13/23 05/17/23 tablet sumatriptan succinate 50 mg tablet 50 mg PO PRN PRN Migraine Headache 05/13/23 05/17/23 Allergies Allergy/AdvReac Type Severity Reaction Status Date / Time No Known Drug Allergies Allergy Unknown Unknown Verified 08/30/23 09:05 Review of Systems Review of Systems: CONSTITUTIONAL: Denies fever SKIN: Reports laceration MUSCULOSKELETAL: Reports myalgia. NEUROLOGIC: Denies numbness, or weakness. All systems reviewed & are unremarkable except as noted in HPI and below PMFSH Past Medical History Medical History No significant past medical history Surgical History Surgical History No pertinent past surgical history Family History Family History Father Diverticulitis large intestine Grandparent Diverticulitis large intestine Other Diverticulitis large intestine Social History Social History (Updated 12/25/22 @ 09:37 by Karol Walters) Smoking status: Never smoker Second hand tobacco smoke exposure: No Additional smoking assessment comments: social THC smoker Alcohol intake: never Substance use: current Substance use type: marijuana Other substance usage details: daily use vape pen Last use: 11/29/22 Lack of Transportation: No Lack of Food: Never True Current Housing: I Have Housing Concerned About Future Housing: No Difficulty Paying Gas/Electric Bills: No Difficulty Paying for Meds: No Currently Unemployed: No Education: Associate Degree Difficulty w/ Childcare or Family Care: No Living arrangements: with family Spiritual care concerns: No Exam Narrative: GENERAL: Well-appearing, well-nourished, and in no acute distress. HEAD: Normocephalic, atraumatic. EYES: EOMI. EXTREMITIES: Normal range of motion. No edema or obvious deformity. Multiple puncture wounds to the right calf. 3 linear laceration into subcutaneous tissue, about 4cm each. Normal sensation SKIN: Warm, dry, no rash. NEURO: No focal deficits. Alert and oriented x3. PSYCH: Normal mood and affect Course Course Emergency Course: Patient was educated on wound care. Agrees with plan of care Vital Signs Vital signs: Vital Signs Temperature 98.2 F 08/30/23 08:40 Pulse Rate 109 H 08/30/23 08:40 Respiratory Rate 16 08/30/23 08:40 Blood Pressure 172/100 H 08/30/23 08:40 Pulse Oximetry 99 08/30/23 08:40 Oxygen Delivery Room Air 08/30/23 08:40 Temperature 98.2 F 08/30/23 08:40 Pulse Rate 109 H 08/30/23 08:40 Respiratory Rate 16 08/30/23 08:40 Blood Pressure 172/100 H 08/30/23 08:40 Pulse Oximetry 99 08/30/23 08:40 Oxygen Delivery Room Air 08/30/23 08:40 Procedures Laceration Laceration 1: Date: 08/30/23 Time: 10:09 Site: lower extremity Side (If applicable): right Size (cm): 3 Description: linear Depth: simple, single layer Pre-repair: irrigated extensively ====== Skin Level ====== Skin layer closed with: steri strips ====== Subcutaneous Layer ====== ======
[2023-08-30 10:18] VITALS: BP 145/89; PULSE 68; RESP 16; O2SAT 99
== END 2023-08-30 10:19 | disposition home or self-care (01) ==
PROVIDERS: Emergency Provider Physician Assistant; PCP Student in an Organized Health Care Education/Training Program
DX: S81.851A Open bite, right lower leg, initial encounter (principal); W54.0XXA Bitten by dog, initial encounter
CPT/HCPCS: 73590; 99283

== ENCOUNTER 2023-09-23 14:43 | Observation (INO) | payer OTHER, SELFPAY ==
[2023-09-23] VITALS (10 sets, daily range): BP systolic 131–155; BP diastolic 83–99; PULSE 70–117; RESP 12–22; TEMP 36.5–36.6; O2SAT 95–100
--- NOTE | ~2023-09-23 | CT_ITS ---
EXAMINATION: CT abdomen pelvis w con DATE: 09/23/2023 16:15 INDICATION: abdominal pain TECHNIQUE: Computed tomography (CT) of the abdomen and pelvis was performed with 100 mL Omnipaque-350 intravenous contrast. Automated exposure control and iterative reconstruction technique were employe d. The dose-length product was 1635.36 mGy-cm. COMPARISON: 12/12/2022. FINDINGS: Lower thorax: Stable left lower lobe granuloma/intrapulmonary lymph node. Liver: Hepatomegaly with steatosis Biliary/Gallbladder: Gallbladder is normal. No bile duct dilation. Pancreas: No mass or duct dilation. Spleen: Normal. Adrenals:No mass. Kidneys: No suspicious mass, obstructing stone, or hydronephrosis. GI tract: No small or large bowel dilation. Scattered colonic diverticuli. Mild persistent wall thick ening of the mid sigmoid in the left lateral deep pelvis, with mild surrounding inflammatory change a nd adjacent peritoneal thickening. Small extra colonic gas collections along the peritoneal reflectio n of the left lateral pelvic wall. Overall, the inflammatory change, bowel wall thickening, and volum e of extra colonic gas has decreased since the prior study. No discrete abscess identified. Normal ap pendix. Mesentery/Peritoneum: No ascites, mass, or free air. Retroperitoneum: No mass. Pelvis: Pelvic organs are within normal limits. Soft Tissues: Enlarged bilateral femoral and left inguinal lymph nodes. Bones: No acute osseous finding. IMPRESSION: Overall interval improving findings of complicated sigmoid diverticulitis in the left lateral pelvis since the examination of 12/12/2022. Recurrent/early worsening of disease is not excluded and should b e correlated clinically. Reviewed, dictated and finalized at location K. ER [employer]IN IMPRESSION: Overall interval improving findings of complicated sigmoid diverticulitis in th e left lateral pelvis since the examination of 12/12/2022. Recurrent/early worse lucio of disease is not excluded and should be correlated clinically.
--- NOTE | 2023-09-23 15:05 | ED.GENADULT ---
HPI - General Adult General Chief complaint: Abdominal Pain <Merissa Camarena March [employer] - Last Filed: 09/24/23 08:58> Stated complaint: colon pain <Merissa Camarena March - Last Filed: 09/24/23 08:58> Time Seen by Provider: 09/23/23 20:17 <Merissa Camarena March - Last Filed: 09/24/23 08:58> History of Present Illness HPI narrative: Shaw Fuentes is a 22 y/o male with PMHx of Diverticulitis twice and both times needed to be admitted. Today he comes in with complaints of lower abdominal pain that started last night. He reports nausea but has not vomited. Last food he ate was at 2100 yesterday. Denies fever/chills Last BM this morning that was loose <Merissa Camarena March, - Last Filed: 09/24/23 08:58> Shaw Fuentes is a 22 y/o male with PMHx of Diverticulitis twice and both times needed to be admitted. Today he comes in with complaints of lower abdominal pain that started last night. He reports nausea but has not vomited. He has had decreased p.o. intake and decreased appetite. Last food he ate was at 2100 yesterday. States his pain is generally across his lower abdomen, LLQ > RLQ. Initially denies fever/chills but then does state that he alternated between feeling hot and cold under the covers last night. However, when he took his temperature at home is 97.6 ?F. Last BM this morning that was loose. He denies any bloody stools. He believes the last colonoscopy was approximately 2 months ago. He is currently taking gentamicin topic antibiotic cream for a dog bite he sustained last month. <Nataliya Bullock MD - Last Filed: 09/23/23 22:18> Related Data Home medications: Home Medications Medication Instructions Recorded Confirmed ondansetron 4 mg disintegrating 4 mg PO PRN PRN Migraine Headache 05/13/23 09/23/23 tablet sumatriptan succinate 50 mg tablet 50 mg PO PRN PRN Migraine Headache 05/13/23 09/23/23 <Merissa Camarena March [employer] - Last Filed: 09/24/23 08:58> Allergies/adverse reactions: Allergies Allergy/AdvReac Type Severity Reaction Status Date / Time No Known Drug Allergies Allergy Unknown Unknown Verified 09/23/23 20:20 <Merissa Camarena March, Last Filed: 09/24/23 08:58> FORMERLY [facility], [facility] Past Medical History Medical History: Medical History Diverticulitis of intestine with perforation and abscess Dog bite of right lower leg <Merissa Camarena March, Last Filed: 09/24/23 08:58> Surgical History Surgical History: Surgical History History of colonoscopy 05/17/[address] Alfredo Parish <Merissa Camarena March, Last Filed: 09/24/23 08:58> Family History Family History: Family History (Updated 09/23/23 @ 23:42 by Adele Gonzalez RN) Father Diverticulitis large intestine Grandparent Diverticulitis large intestine Acute myocardial infarction Cerebrovascular accident Other Diverticulitis large intestine Mother Acute myocardial infarction Cerebrovascular accident <Merissa Camarena March, Last Filed: 09/24/23 08:58> Social History Social History: Social History Smoking status: Never smoker Second hand tobacco smoke exposure: No Additional smoking assessment comments: social THC smoker Alcohol intake: never Substance use: current Substance use type: marijuana Other substance usage details: DAILY Last use: 11/29/22 Lack of Transportation: No Lack of Food: Sometimes True Current Housing: I Have Housing Concerned About Future Housing: No Difficulty Paying Gas/Electric Bills: No Difficulty Paying for Meds: No Currently Unemployed: No Education: Associate Degree Difficulty w/ Childcare or Family Care: No Living arrangements: with family Spiritual care concerns: No <Mersisa Camarena March, Last Filed: 09/24/23 08:58> Exam Const: General: no acute distress and
[2023-09-23 15:22] LABS: Basophils Absolute Auto 0.1 K/mm3 (0.0-0.1); Basophils Percent Auto 0.4 % (0.2-1.2); Eosinophils Percent Auto 0.1 % (0-4.4); Hematocrit 47.8 % (42.0-52.0); Hemoglobin 15.5 g/dL (14.0-18.0); Immature Granulocyte Absolute 0.06 K/mm3 (0.00-0.031); Immature Granulocyte Percent A 0.4 % (0-0.5); Lymphocytes Absolute Auto 1.76 K/mm3 (0.9-3.2); Lymphocytes Percent Auto 10.7 % (18.3-44.2); Mean Corpuscular HGB Conc 32.4 g/dl (32-36); Mean Corpuscular Hemoglobin 26.8 pg (26-34); Mean Corpuscular Volume 82.6 fl (80-100); Mean Platelet Volume 9.8 fl (7.4-10.4); Monocytes Absolute Auto 0.9 K/mm3 (0.1-0.6); Monocytes Percent Auto 5.3 % (2.6-8.5); Neutrophils Absolute Auto 13.7 K/mm3 (1.3-6.7); Neutrophils Percent Auto 83.1 % (45.5-73.1); Platelet Count Result 296 k/mm3 (150-375); Red Blood Count 5.79 M/mm3 (4.6-6.20); Red Cell Distribution Width 12.8 % (11.5-14.5); White Blood Count 16.4 K/mm3 (4.5-10.0)
[2023-09-23 15:32] LABS: Alanine Aminotransferase 20 U/L (6-50); Albumin Level 4.6 g/dL (3.5-5.1); Alkaline Phosphatase 114 U/L (38-126); Anion Gap 10 mmol/L (8-16); Aspartate Amino Transferase 24 U/L (17-59); Bilirubin,Total 0.7 mg/dL (0.2-1.3); Blood Urea Nitrogen 10 mg/dL (9-20); Calcium 9.5 mg/dL (8.4-10.2); Carbon Dioxide 22 mmol/L (22-30); Chloride 104 mmol/L (98-107); Estimated CRCL calculation 161 ml/min; Estimated Glomerular Filt Rate > 60; Glucose 112 mg/dL (65-110); Lipase 34 U/L (23-300); Potassium 3.7 mmol/L (3.4-5.0); Sodium 136 mmol/L (137-145)
[2023-09-23 15:39] LABS: Appearance Urine Cloudy (Clear); Bacteria Urine None Seen /hpf; Bilirubin Urine Negative (Negative); Blood Urine Negative (Negative); Color Urine Dark Yellow (Yellow); Glucose Urine UA Negative (Negative); Hyaline Casts Urine Present /lpf; Ketones Urine Trace mg/dL (Negative); Leukocyte Esterase Ur Negative LEU/UL (Negative); Nitrate Urine Negative (Negative); Protein Urine 1+ mg/dL (Negative); RBC Urine 0-2 /hpf (0-2); Specific Grav Ur 1.026 (1.001-1.035); Squamous Epithelial Cell Urine None seen /hpf (Few); WBC Urine 0-5 /hpf; pH Urine 5.5 (5.0-9.0)
[2023-09-23 15:40] LABS: Add Urine Microscopic? YES
[2023-09-23 16:09] LABS: Lactic Acid Reflex 1.1 mmol/L (0.7-2.0)
[2023-09-23] MEDS: IBUPROFEN 600 MG TABLET PO (20:47)
[2023-09-23] MEDS: ACETAMINOPHEN 500 MG TABLET 1000 MG PO (20:47)
[2023-09-23] MEDS: LACTATED RINGERS 1,000 ML 999 ML IV CONT (20:48)
[2023-09-23] MEDS: MORPHINE SULFATE (*CRX) 4 MG/ML INJ IV PUSH (20:49)
[2023-09-23] MEDS: metroNIDAZOLE 500 MG/ISO 100ML 500 MG/100 ML BAG 100 MG IVPB (20:55)
[2023-09-23] MEDS: CIPROFLOXACIN 400 MG/D5W 200ML 200 ML 200 MG IVPB (22:47)
--- NOTE | 2023-09-23 23:40 | ADMGEN ---
This patient, Shaw Fuentes, was admitted to Medical Room 342-01. Patient/family oriented to hospital policies and general routines including ID bracelet, bed and alarms, visiting hours, pain management, procedures, bathroom and other care routines, personal items, smoking policy, room service/diet, and visiting hours. Information on how to activate the Rapid Response Team has been discussed. Patient/Family are encouraged to report perceived risks to care and to ask questions if they do not understand what they are told or what they should do.
[2023-09-23] MEDS: LACTATED RINGERS 1,000 ML 125 ML IV CONT (23:55)
[2023-09-23] MEDS: HYDROcodone/acetaminophen (*CRX) 5-325 MG TABLET 1 TAB PO (23:57)
[2023-09-24 01:15] VITALS: BP 151/96; PULSE 64; RESP 20; TEMP 36.7; O2SAT 98
--- NOTE | 2023-09-24 04:25 | PM.IMHP ---
H&P: HPI History of Present Illness Date/Time: 09/24/23 04:25 Chief Complaint: Abdominal pain Narrative: This is a 22-year-old male with past medical history significant for diverticulosis, diverticulitis, diverticular abscess. Patient presents to the emergency room after having abdominal pain of 1 day duration, constipation, loose stools, chills, nausea, has had poor per orally intake, poor appetite. Preliminary [place] [id number] of abdomen and pelvis was reported as: EXAMINATION: CT abdomen pelvis w con DATE: 09/23/2023 16:15 INDICATION: abdominal pain TECHNIQUE: Computed tomography (CT) of the abdomen and pelvis was performed with 100 mL Omnipaque-350 intravenous contrast. Automated exposure control and iterative reconstruction technique were employed. The dose-length product was 1635.36 mGy-cm. COMPARISON: 12/12/2022. FINDINGS: Lower thorax: Stable left lower lobe granuloma/intrapulmonary lymph node. Liver: Hepatomegaly with steatosis? Biliary/Gallbladder: Gallbladder is normal. No bile duct dilation. Pancreas: No mass or duct dilation. Spleen: Normal. Adrenals:No mass. Kidneys: No suspicious mass, obstructing stone, or hydronephrosis. GI tract: No small or large bowel dilation. Scattered colonic diverticuli. Mild persistent wall thickening of the mid sigmoid in the left lateral deep pelvis, with mild surrounding inflammatory change and adjacent peritoneal thickening. Small extra colonic gas collections along the peritoneal reflection of the left lateral pelvic wall. Overall, the inflammatory change, bowel wall thickening, and volume of extra colonic gas has decreased since the prior study. No discrete abscess identified. Normal appendix. Mesentery/Peritoneum: No ascites, mass, or free air. Retroperitoneum: No mass. Pelvis: Pelvic organs are within normal limits. Soft Tissues: Enlarged bilateral femoral and left inguinal lymph nodes. Bones:? No acute osseous finding. IMPRESSION: Overall interval improving findings of complicated sigmoid diverticulitis in the left lateral pelvis since the examination of 12/12/2022. Recurrent/early worsening of disease is not excluded and should be correlated clinically. Review of Systems Review of Systems: Abdominal pain, constipation alternating with loose stools, poor appetite poor per orally intake 1 day duration Constitutional: Constitutional: Reports chills, Denies fatigue, Denies fever(s), Denies night sweats and Reports poor appetite Eyes: Eyes: Denies change in vision ENT: Denies dysphagia and Denies odynophagia Cardiovascular: Cardiovascular: Denies chest pain, Denies radiating jaw, neck or arm pain and Denies palpitations Respiratory: Respiratory: Denies cough and Denies dyspnea Gastrointestinal: Gastrointestinal: Denies melena, Denies hematochezia, Denies coffee ground emesis, Reports constipation, Denies dyspepsia, Reports loose stools and Reports nausea Genitourinary: Genitourinary: Denies dysuria Musculoskeletal: Musculoskeletal: Denies myalgias Integumentary/Breasts: Skin/Breast: Denies rash Neurologic: Denies focal weakness and Denies Sensory deficit (Neuro) Psychiatric: Psychiatric: Reports no additional psychiatric complaints and Reports as per HPI Endocrine: Endocrine: Denies cold intolerance, Denies flushing, Denies heat intolerance, Denies polyphagia, Denies polydipsia and Denies palpitations Hematologic/Lymphatic: Hematologic/Lymphatic: Reports no additional hematologic/lymphatic complaints and Reports as per HPI Allergic/Immunologic: Allergic/Immunologic: Reports no additional allergic/immunologic complaints and Reports as per HPI PMFSH Past Medical History Medical History Diverticulitis of intestine with perforation and abscess Dog bite of right lower leg Surgical History Surgical History Hist
[2023-09-24] MEDS: metroNIDAZOLE 500 MG/ISO 100ML 500 MG/100 ML BAG 100 MG IVPB ×3 (05:03→21:39)
[2023-09-24 06:00] VITALS: BP 116/71; PULSE 78; RESP 20; TEMP 36.6; O2SAT 99
[2023-09-24] MEDS: CIPROFLOXACIN 400 MG/D5W 200ML 200 ML 200 MG IVPB ×3 (06:02→23:02)
[2023-09-24] MEDS: HYDROcodone/acetaminophen (*CRX) 5-325 MG TABLET 1 TAB PO ×2 (07:49→17:33)
--- NOTE | 2023-09-24 09:48 | PM.CNGS ---
Assessment and Plan Assessment and plan (1) Diverticulitis: Code(s): K57.92 - Diverticulitis of intestine, part unspecified, without perforation or abscess without bleeding Status: Acute Assessment and Plan: Patient with his second episode of sigmoid diverticulitis with microperforation. No organized abscess or large volume of free intraperitoneal air on CT. No diffuse peritoneal signs on exam or indication for urgent surgical intervention. We would recommed to continue with conservative treatment for now with IV antibiotics. Will keep him on clear liquids for now and continue IV fluids. Repeat labs tomorrow. Will follow with serial abdominal exams. (2) Obesity, morbid, BMI 40.0-49.9: Code(s): E66.01 - Morbid (severe) obesity due to excess calories Status: Acute (3) Open wound, lower leg: Code(s): S81.809A - Unspecified open wound, unspecified lower leg, initial encounter Status: Acute Assessment and Plan: Open wound from a dog bite on his right lower leg. Wound appears stable, no signs of infection, continue local wound care. Plan I have discussed the patient's case and plan of care with Dr. Allen. Thank you for allowing us to see the patient in consultation and we will continue to follow along with you. History of Present Illness Consult details Consult date: 09/24/23 Reason for consult: other (Diverticulitis with microperforation) Requesting physician: Chris Cordoba MD Narrative: This is a 22-year-old man who is known to our service from a hospitalization in November of 2022 for sigmoid diverticulitis with microperforation and abscess. He was treated conservatively with IV antibiotics. He did return to the ER about 10 days after discharge with worsening pain, requiring another course of IV antibiotics and improved following this hospitalization. He followed up with Dr. Hays as an outpatient and was set up for a colonoscopy on 05/17/2023 with findings of diverticulosis in the sigmoid colon. He was doing well up until 2 days ago, when he developed left lower quadrant abdominal pain. His pain began to radiate across his entire lower abdomen and up the right side of his abdomen. His pain felt similar to his previous episode of diverticulitis and prompted him to go to the ER for evaluation yesterday. He reports associated nausea, but no vomiting. He reports dry heaving yesterday morning. Leading up to this episode, he was constipated and then yesterday had a loose small bowel movement. Today he is passing flatus. Workup in the ER [place] [address]. He was also complaining of lower abdominal pain with urination and dysuria starting yesterday. Urinalysis negative for UTI. CT scan of the abdomen and pelvis showed mild wall thickening of the mid sigmoid colon with surrounding inflammatory change and adjacent peritoneal thickening, suggestive of sigmoid diverticulitis with small extra colonic gas collections along the peritoneal reflection of the left lateral pelvic wall that overall appears improved compared to his CT scan from November. He was admitted to the hospitalist service. The patient was started on IV ciprofloxacin and metronidazole. He was started on a clear liquid diet. Our service was consulted for perforated diverticulitis. He also was seen in August in the ER for a dog bite and has currently been following wound care in [place] with gentamicin ointment and dressing changes daily. Review of Systems Review of Systems: All systems reviewed & are unremarkable except as noted in HPI and below PMFSH Past Medical History Medical History Diverticulitis of intestine with perforation and abscess Dog bite of right lower leg Surgical History Surgical History History of colonoscopy 05/17/[address] Alfredo Parish [facility]
--- NOTE | 2023-09-24 10:28 | PM.IMPN ---
Progress Note: A&P Assessment and Plan (1) Diverticulitis: Code(s): K57.92 - Diverticulitis of intestine, part unspecified, without perforation or abscess without bleeding Status: Acute Assessment and Plan: Abdominal pain, nausea CT with concerns for diverticulitis IV antibiotics with ciprofloxacin and Flagyl decreased IV fluids from 125 mL an hour to 75 mL an hour Clear liquid diet Serial abdominal exams P.r.n. Zofran for nausea and [place], ibuprofen for pain (2) Obesity, morbid, BMI 40.0-49.9: Code(s): E66.01 - Morbid (severe) obesity due to excess calories Status: Acute Assessment and Plan: Lifestyle and diet modifications (3) Hypertension: Code(s): I10 - Essential (primary) hypertension Status: Acute Assessment and Plan: Elevated blood pressures on arrival. SBP 140s to 150s. Currently on no meds Could be pain related Blood pressures today 09/24 is 116/71 Follow-up in outpatient setting (4) Dog bite of calf: Code(s): S81.859A - Open bite, unspecified lower leg, initial encounter; W54.0XXA - Bitten by dog, initial encounter Status: Acute Assessment and Plan: Open wound right lower leg from dog bite Patient has been seeing Wound Care in [place] through [facility] Surgery ordered local wound care with gentamicin Does not appear infected per surgery Wound consult placed Plan Feeding: Clear liquid Analgesia: Ibuprofen, [place] Thromboembolic prophylaxis: Not indicated Ulcer prophylaxis: Not indicated Glycemic control: Not indicated Bowel regimen: Lines: PIV Antibiotics: Cipro and Flagyl Disposition: Home Subjective Date/time seen: 09/24/23 10:28 Interval history: HPI obtained from the chart, This is a 22-year-old male with past medical history significant for migraines, diverticulosis, diverticulitis, diverticular abscess.? Patient presents to the emergency room after having abdominal pain of 1 day duration, constipation, loose stools, chills, nausea, has had poor per orally intake, poor appetite.? Preliminary workup [place] [address] [place] of his abdomen and pelvis shows interval improving findings of complicated sigmoid diverticulitis in the left lateral pelvis that could be recurrent or worsening disease; advised clinical correlation. General surgery was consult and the patient was admitted to the medical floor for further workup. 09/24: No acute events overnight. Patient feels his pain is slightly improved today however he can not tell if it is because of the pain medicine or improvement with his diverticulitis. He does still report some left lower quadrant tenderness. He is passing flatus but he has not had a bowel movement since Saturday. He continues to have intermittent nausea but no vomiting. His white count has improved with IV antibiotics. Reviewed plan of care for continued IV antibiotics, serial abdominal exams, and monitoring for return of bowel function. No questions or concerns at this time. Review of Systems Review of Systems: All systems reviewed & are unremarkable except as noted in HPI and below Exam Narrative: General: well appearing, well developed, well nourished, appears stated age. HEENT: normocephalic, atraumatic. Mucous membranes moist. EOMI, PERRLA, bilateral sclera anicteric, no conjunctival injection. Neck supple without JVD, lymphadenopathy, or bruit. Respiratory: clear to auscultation bilaterally. No rales/rhonic/wheezes. Cardiovascular: Regular rate and rhythm, normal S1-S2 upon auscultation. No murmurs, rubs, or clicks. PMI is nondisplaced, capillary re-fill less than 3 second. Abdomen: Soft, round, no pulsatile masses, distention and mildly tender to LLW. No rebound, no guarding. No CVA tenderness, no hepatosplenomegaly. Bowel sounds present to all four quadrants. No high pitch or tinkling sounds, resonant to percussion. Extremities: No cyanosis, cl
[2023-09-24] MEDS: LACTATED RINGERS 1,000 ML 125 ML IV CONT (10:35)
--- NOTE | 2023-09-24 11:00 | PCWOUND ---
WOCN NOTE Received referral for wound to right calf-dog bite. Needing wound care orders. Spoke to Day RN, she already identified current care and received orders for care. no wound care assessment needed at this time.
[2023-09-24 11:12] LABS: Basophils Percent Auto 0.3 % (0.2-1.2); Eosinophils Absolute Auto 0.1 K/mm3 (0-0.3); Eosinophils Percent Auto 0.9 % (0-4.4); Hematocrit 45.4 % (42.0-52.0); Hemoglobin 14.3 g/dL (14.0-18.0); Immature Granulocyte Absolute 0.04 K/mm3 (0.00-0.031); Immature Granulocyte Percent A 0.3 % (0-0.5); Lymphocytes Absolute Auto 2.22 K/mm3 (0.9-3.2); Lymphocytes Percent Auto 18.4 % (18.3-44.2); Mean Corpuscular HGB Conc 31.5 g/dl (32-36); Mean Corpuscular Hemoglobin 26.3 pg (26-34); Mean Corpuscular Volume 83.5 fl (80-100); Mean Platelet Volume 9.6 fl (7.4-10.4); Monocytes Absolute Auto 0.9 K/mm3 (0.1-0.6); Neutrophils Absolute Auto 8.8 K/mm3 (1.3-6.7); Neutrophils Percent Auto 73.1 % (45.5-73.1); Platelet Count Result 250 k/mm3 (150-375); Red Blood Count 5.44 M/mm3 (4.6-6.20); Red Cell Distribution Width 12.9 % (11.5-14.5); White Blood Count 12.1 K/mm3 (4.5-10.0)
[2023-09-24 11:27] LABS: Alanine Aminotransferase 15 U/L (6-50); Albumin Level 4.1 g/dL (3.5-5.1); Alkaline Phosphatase 101 U/L (38-126); Anion Gap 9 mmol/L (8-16); Aspartate Amino Transferase 20 U/L (17-59); Bilirubin,Total 1.1 mg/dL (0.2-1.3); Blood Urea Nitrogen 10 mg/dL (9-20); Calcium 9.1 mg/dL (8.4-10.2); Carbon Dioxide 25 mmol/L (22-30); Chloride 102 mmol/L (98-107); Estimated CRCL calculation 179 ml/min; Estimated Glomerular Filt Rate > 60; Glucose 103 mg/dL (65-110); Potassium 3.4 mmol/L (3.4-5.0); Sodium 136 mmol/L (137-145)
--- NOTE | 2023-09-24 13:04 | PCCCNOTE ---
On 09/24/23, the student, Carolyn Hackett, provided care and completed [facility] documentation on this patient. I have reviewed the student's documentation and agree with the findings.
[2023-09-24 14:52] VITALS: BP 146/94; PULSE 81; RESP 16; TEMP 36.6; O2SAT 98
[2023-09-24 20:00] VITALS: PULSE 81; RESP 16; O2SAT 98
[2023-09-24 20:48] VITALS: BP 143/79; PULSE 89; RESP 18; TEMP 36.3; O2SAT 96
[2023-09-24 23:35] VITALS: O2SAT 99
[2023-09-25] MEDS: HYDROcodone/acetaminophen (*CRX) 5-325 MG TABLET 1 TAB PO ×2 (04:07→21:21)
[2023-09-25] MEDS: LACTATED RINGERS 1,000 ML 75 ML IV CONT (04:08)
[2023-09-25] MEDS: CIPROFLOXACIN 400 MG/D5W 200ML 200 ML 200 MG IVPB ×3 (05:05→21:11)
[2023-09-25] MEDS: ONDANSETRON INJ 4 MG/2 ML VIAL IV PUSH (05:09)
[2023-09-25 05:32] LABS: Hematocrit 41.5 % (42.0-52.0); Hemoglobin 13.5 g/dL (14.0-18.0); Mean Corpuscular HGB Conc 32.5 g/dl (32-36); Mean Corpuscular Hemoglobin 26.8 pg (26-34); Mean Corpuscular Volume 82.5 fl (80-100); Mean Platelet Volume 9.9 fl (7.4-10.4); Platelet Count Result 235 k/mm3 (150-375); Red Blood Count 5.03 M/mm3 (4.6-6.20); Red Cell Distribution Width 12.9 % (11.5-14.5); White Blood Count 10.7 K/mm3 (4.5-10.0)
[2023-09-25 05:41] LABS: Anion Gap 8 mmol/L (8-16); Blood Urea Nitrogen 8 mg/dL (9-20); Calcium 8.7 mg/dL (8.4-10.2); Carbon Dioxide 26 mmol/L (22-30); Chloride 101 mmol/L (98-107); Estimated CRCL calculation 161 ml/min; Estimated Glomerular Filt Rate > 60; Glucose 88 mg/dL (65-110); Sodium 135 mmol/L (137-145)
[2023-09-25 06:00] VITALS: BP 134/74; PULSE 85; RESP 16; TEMP 36.8; O2SAT 98
[2023-09-25] MEDS: metroNIDAZOLE 500 MG/ISO 100ML 500 MG/100 ML BAG 100 MG IVPB ×3 (06:19→21:11)
--- NOTE | 2023-09-25 11:17 | PM.IMPN ---
Progress Note: A&P Assessment and Plan (1) Diverticulitis: Code(s): K57.92 - Diverticulitis of intestine, part unspecified, without perforation or abscess without bleeding Status: Acute Assessment and Plan: Abdominal pain, nausea CT with concerns for diverticulitis IV antibiotics with ciprofloxacin and Flagyl decreased IV fluids from 125 mL an hour to 75 mL an hour Clear liquid diet Serial abdominal exams P.r.n. Zofran for nausea and [place], ibuprofen for pain 09/25: Patient exam unchanged from prior no better no worse. Patient is tolerating clear liquid diet well. Will defer advancing diet to surgery service. (2) Obesity, morbid, BMI 40.0-49.9: Code(s): E66.01 - Morbid (severe) obesity due to excess calories Status: Acute Assessment and Plan: Lifestyle and diet modifications (3) Hypertension: Code(s): I10 - Essential (primary) hypertension Status: Acute Assessment and Plan: Elevated blood pressures on arrival. SBP 140s to 150s. Currently on no meds Could be pain related Blood pressures today 09/24 is 116/71 Follow-up in outpatient setting Blood pressure reviewed and stable. Continue home medications. Blood pressure reviewed on 09/25 (4) Dog bite of calf: Code(s): S81.859A - Open bite, unspecified lower leg, initial encounter; W54.0XXA - Bitten by dog, initial encounter Status: Acute Assessment and Plan: Open wound right lower leg from dog bite Patient has been seeing Wound Care in [place] through [facility] Surgery ordered local wound care with gentamicin Does not appear infected per surgery Wound consult placed Plan Feeding: Clear liquid Analgesia: Ibuprofen, [place] Thromboembolic prophylaxis: Not indicated Ulcer prophylaxis: Not indicated Glycemic control: Not indicated Bowel regimen: Not indicated Lines: PIV Antibiotics: Cipro and Flagyl IV Disposition: Home Time Spent With Patient Time with patient: 25 - 35 minutes Subjective Date/time seen: 09/25/23 11:17 Interval history: HPI obtained from the chart, This is a 22-year-old male with past medical history significant for migraines, diverticulosis, diverticulitis, diverticular abscess.? Patient presents to the emergency room after having abdominal pain of 1 day duration, constipation, loose stools, chills, nausea, has had poor per orally intake, poor appetite.? Preliminary work[place] [address] [place] of his abdomen and pelvis shows interval improving findings of complicated sigmoid diverticulitis in the left lateral pelvis that could be recurrent or worsening disease; advised clinical correlation. General surgery was consult and the patient was admitted to the medical floor for further workup. 09/24: No acute events overnight. Patient feels his pain is slightly improved today however he can not tell if it is because of the pain medicine or improvement with his diverticulitis. He does still report some left lower quadrant tenderness. He is passing flatus but he has not had a bowel movement since Saturday. He continues to have intermittent nausea but no vomiting. His white count has improved with IV antibiotics. Reviewed plan of care for continued IV antibiotics, serial abdominal exams, and monitoring for return of bowel function. No questions or concerns at this time. 09/25: No acute events overnight. Patient is tolerating clear liquid diet well but still complaining of abdominal tenderness everywhere except LUQ. No further chills, no fever. Passing some liquid stool, nothing formed. No rectal bleeding. No abdominal guarding or rebound. Patient reports 4-5 days of hospitalization with last round of diverticulitis. White blood cell count continues to improve. Review of Systems Review of Systems: All systems reviewed & are unremarkable except as noted in HPI and below Exam Narrative: General: well appearing, well develop
[2023-09-25] MEDS: GENTAMICIN SULFATE 0.1% CR 15 GM TUBE 1 APPLIC TOPICAL (11:35)
[2023-09-25] MEDS: POTASSIUM CHLORIDE 20 MEQ ER TABLET 40 MEQ PO (12:05)
[2023-09-25 14:00] VITALS: BP 121/59; PULSE 79; RESP 16; TEMP 37; O2SAT 97
--- NOTE | 2023-09-25 14:57 | PM.PNGS ---
Progress Note: A&P Assessment and Plan (1) Diverticulitis: Code(s): K57.92 - Diverticulitis of intestine, part unspecified, without perforation or abscess without bleeding Status: Acute Assessment and Plan: Clinically improving, abdominal pain and tenderness better today. WBC trending down. Continue IV antibiotics Will advance to full liquids. Stop IV fluids Repeat labs tomorrow Subjective Subjective Date/Time Seen: 09/25/23 14:57 Patient reports: no new complaints, feels better, pain is less, tolerating liquids well, flatus, bowel movement and afebrile Exam Const: General: comfortable Orientation/consciousness: patient oriented x3 GI: Inspection: non-distended GI Palp: Yes Soft to palpation, Yes Tenderness to palpation present (GI) (mild LLQ tenderness) and No Guarding due to palpation present (GI) Auscultation: normal bowel sounds Objective Data Vital Signs Vital Signs: Vital Signs - 24 hr 09/24/23 20:00 09/24/23 20:48 09/25/23 06:00 Temperature 97.4 F L 98.3 F Pulse Rate 81 89 85 Respiratory Rate 16 18 16 Blood Pressure 143/79 H 134/74 Pulse Oximetry 98 96 98 Oxygen Delivery Room Air 09/25/23 08:51 09/25/23 14:00 Temperature 98.6 F Pulse Rate 79 Respiratory Rate 16 Blood Pressure 121/59 L Pulse Oximetry 97 Oxygen Delivery Room Air Intake/Output Intake/Output: Intake & Output 09/22/23 09/23/23 09/24/23 09/25/23 23:59 23:59 23:59 23:59 Intake Total 1300 4400 1020 Balance 1300 4400 1020 Meds/Results Medications: Active Medications Generic Name Dose Route Start Last Admin Trade Name Freq PRN Reason Stop Dose Admin Hydrocodone Bitart/Acetaminophen 1 tab 09/23/23 21:37 09/25/23 04:07 Hydrocodone/Acetaminophen (*Crx) 5-325 Mg Tablet PO 1 tab Q4H PRN Administration Pain Rated 4-6 Gentamicin Sulfate 1 applic 09/25/23 09:00 09/25/23 11:35 Gentamicin Sulfate 0.1% Cr 15 Gm Tube TOPICAL 1 applic DAILY MIKI Administration Lactated Ringer's 1,000 mls @ 75 mls/hr 09/23/23 21:40 09/25/23 12:53 Lr - Lactated Ringers Iv IV CONT 75 mls/hr .[id number] MIKI Infusion Ciprofloxacin/Dextrose 200 mls @ 200 mls/hr 09/24/23 06:00 09/25/23 14:07 Cipro 400 Mg/D5w 200 Ml IVPB Infused Q8HR MIKI Infusion Metronidazole 500 mg in 100 mls @ 100 mls/hr 09/24/23 06:00 09/25/23 07:19 Flagyl 500 Mg/Iso Soln 100 Ml IVPB Infused Q8HR MIKI Infusion Ibuprofen 600 mg 09/24/23 09:55 Ibuprofen 600 Mg Tablet PO Q6H PRN Mild Pain (1-3) or Fever Ondansetron HCl 4 mg 09/23/23 21:37 09/25/23 05:09 Ondansetron Inj 4 Mg/2 Ml Vial IV PUSH 4 mg Q4H PRN Administration Nausea Sumatriptan Succinate 50 mg 09/24/23 04:33 Sumatriptan Succinate 25 Mg Tablet PO PRN PRN Migraine Headache Radiology Results: ITS Impressions Abdomen/Pelvis CT 09/23/23 16:18 IMPRESSION: Overall interval improving findings of complicated sigmoid diverticulitis in the left lateral pelvis since the examination of 12/12/2022. Recurrent/early worsening of disease is not excluded and should be correlated clinically. Labs Labs: Laboratory Results - last 24 hr 09/25/23 05:00 WBC 10.7 H RBC 5.03 Hgb 13.5 L Hct 41.5 L MCV 82.5 MCH 26.8 MCHC 32.5 RDW 12.9 Plt Count 235 MPV 9.9 Sodium 135 L Potassium 3.0 L Chloride 101 Carbon Dioxide 26 Anion Gap 8 BUN 8 L Creatinine 0.90 Estim Creat Clear Calc 161 Estimated GFR > 60 Glucose 88 Calcium 8.7
[2023-09-25 20:05] VITALS: BP 149/84; PULSE 81; RESP 18; TEMP 36.4; O2SAT 99
[2023-09-26 04:50] VITALS: BP 127/52; PULSE 73; RESP 16; TEMP 36.3; O2SAT 99
[2023-09-26] MEDS: metroNIDAZOLE 500 MG/ISO 100ML 500 MG/100 ML BAG 200 MG IVPB (05:18)
[2023-09-26] MEDS: CIPROFLOXACIN 400 MG/D5W 200ML 200 ML 200 MG IVPB (05:18)
[2023-09-26 05:19] LABS: Hematocrit 41.6 % (42.0-52.0); Hemoglobin 13.3 g/dL (14.0-18.0); Mean Corpuscular Hemoglobin 26.5 pg (26-34); Mean Corpuscular Volume 82.9 fl (80-100); Mean Platelet Volume 9.9 fl (7.4-10.4); Platelet Count Result 264 k/mm3 (150-375); Red Blood Count 5.02 M/mm3 (4.6-6.20); Red Cell Distribution Width 12.6 % (11.5-14.5); White Blood Count 9.5 K/mm3 (4.5-10.0)
[2023-09-26 05:27] LABS: Anion Gap 6 mmol/L (8-16); Blood Urea Nitrogen 9 mg/dL (9-20); Carbon Dioxide 28 mmol/L (22-30); Chloride 100 mmol/L (98-107); Estimated CRCL calculation 145 ml/min; Estimated Glomerular Filt Rate > 60; Glucose 84 mg/dL (65-110); Potassium 3.2 mmol/L (3.4-5.0); Sodium 134 mmol/L (137-145)
[2023-09-26] MEDS: POTASSIUM CHLORIDE 20 MEQ ER TABLET 40 MEQ PO (09:20)
[2023-09-26] MEDS: GENTAMICIN SULFATE 0.1% CR 15 GM TUBE 1 APPLIC TOPICAL (09:28)
--- NOTE | 2023-09-26 11:48 | PM.PNGS ---
Progress Note: A&P Assessment and Plan (1) Diverticulitis: Code(s): K57.92 - Diverticulitis of intestine, part unspecified, without perforation or abscess without bleeding Status: Acute Assessment and Plan: Continues to improve. WBC normalized. Will advance to low fiber diet. Okay to discharge and transition to oral antibiotics later this afternoon if he tolerates his diet. Plan I have discussed the patient's case and plan of care with Dr. Allen. Subjective Subjective Date/Time Seen: 09/26/23 11:48 Patient reports: no new complaints, feels better, pain is less, tolerating liquids well (full liquids), flatus and afebrile Interval history: Patient feeling better today. He reports having some LLQ abdominal pain when he woke up this morning and when first getting up and out of bed, but this has improved throughout the morning. He denies any abdominal pain while sitting on the couch now. He denies any nausea, vomiting, or bloating. He has had multiple loose BMs. No other complaints at this time. Exam Const: General: comfortable and no acute distress GI: Inspection: non-distended GI Palp: Yes Soft to palpation, Yes Tenderness to palpation present (GI) (very mild TTP in LLQ, improved), No Guarding due to palpation present (GI) and No Rebound tenderness present Auscultation: normal bowel sounds Objective Data Vital Signs Vital Signs: Vital Signs - 24 hr 09/25/23 14:00 09/25/23 20:05 09/26/23 04:50 Temperature 98.6 F 97.5 F L 97.3 F L Pulse Rate 79 81 73 Respiratory Rate 16 18 16 Blood Pressure 121/59 L 149/84 H 127/52 L Pulse Oximetry 97 99 99 Intake/Output Intake/Output: Intake & Output 09/23/23 09/24/23 09/25/23 09/26/23 23:59 23:59 23:59 23:59 Intake Total 1300 4400 2710 1040 Balance 1300 4400 2710 1040 Meds/Results Medications: Active Medications Generic Name Dose Route Start Last Admin Trade Name Freq PRN Reason Stop Dose Admin Hydrocodone Bitart/Acetaminophen 1 tab 09/23/23 21:37 09/25/23 21:21 Hydrocodone/Acetaminophen (*Crx) 5-325 Mg Tablet PO 1 tab Q4H PRN Administration Pain Rated 4-6 Gentamicin Sulfate 1 applic 09/25/23 09:00 09/26/23 09:28 Gentamicin Sulfate 0.1% Cr 15 Gm Tube TOPICAL 1 applic DAILY MIKI Administration Ciprofloxacin/Dextrose 200 mls @ 200 mls/hr 09/24/23 06:00 09/26/23 06:18 Cipro 400 Mg/D5w 200 Ml IVPB Infused Q8HR MIKI Infusion Metronidazole 500 mg in 100 mls @ 100 mls/hr 09/24/23 06:00 09/26/23 05:48 Flagyl 500 Mg/Iso Soln 100 Ml IVPB Infused Q8HR MIKI Infusion Ibuprofen 600 mg 09/24/23 09:55 Ibuprofen 600 Mg Tablet PO Q6H PRN Mild Pain (1-3) or Fever Ondansetron HCl 4 mg 09/23/23 21:37 09/25/23 05:09 Ondansetron Inj 4 Mg/2 Ml Vial IV PUSH 4 mg Q4H PRN Administration Nausea Sumatriptan Succinate 50 mg 09/24/23 04:33 Sumatriptan Succinate 25 Mg Tablet PO PRN PRN Migraine Headache Radiology Results: ITS Impressions Abdomen/Pelvis CT 09/23/23 16:18 IMPRESSION: Overall interval improving findings of complicated sigmoid diverticulitis in the left lateral pelvis since the examination of 12/12/2022. Recurrent/early worsening of disease is not excluded and should be correlated clinically. Labs Labs: Laboratory Results - last 24 hr 09/26/23 04:49 WBC 9.5 RBC 5.02 Hgb 13.3 L Hct 41.6 L MCV 82.9 MCH 26.5 MCHC 32.0 RDW 12.6 Plt Count 264 MPV 9.9 Sodium 134 L Potassium 3.2 L Chloride 100 Carbon Dioxide 28 Anion Gap 6 L BUN 9 Creatinine 1.00 Estim Creat Clear Calc 145 Estimated GFR > 60 Glucose 84 Calcium 9.0
[2023-09-26 14:00] VITALS: BP 153/73; PULSE 86; RESP 18; TEMP 36.9; O2SAT 97
[2023-09-26] MEDS: metroNIDAZOLE 250 MG TABLET 500 MG PO (14:21)
--- NOTE | 2023-09-26 15:04 | PM.DS ---
DS: Admitting Diagnosis Discharge Date 09/26/2023 Admitting Diagnosis Diverticulitis, morbid obesity, hypertension DS: Discharge Diagnosis Discharge Diagnosis (1) Diverticulitis: Code(s): K57.92 - Diverticulitis of intestine, part unspecified, without perforation or abscess without bleeding Status: Acute (2) Obesity, morbid, BMI 40.0-49.9: Code(s): E66.01 - Morbid (severe) obesity due to excess calories Status: Acute (3) Hypertension: Code(s): I10 - Essential (primary) hypertension Status: Acute (4) Dog bite of calf: Code(s): S81.859A - Open bite, unspecified lower leg, initial encounter; W54.0XXA - Bitten by dog, initial encounter Status: Acute DS: Summary Hospital Course Reason for hospitalization: Diverticulitis with microperforation, no abscess Hospital Course: This is a 22-year-old male with past medical history significant for migraines, diverticulosis, diverticulitis, diverticular abscess.? Patient presents to the emergency room after having abdominal pain of 1 day duration, constipation, loose stools, chills, nausea, has had poor per orally intake, poor appetite.? Preliminary workup [place] [address]. [address] of his abdomen and pelvis shows interval improving findings of complicated sigmoid diverticulitis in the left lateral pelvis that could be recurrent or worsening disease; advised clinical correlation. General surgery was consult and the patient was admitted to the medical floor for further workup. 09/24:? No acute events overnight.? Patient feels his pain is slightly improved today however he can not tell if it is because of the pain medicine or improvement with his diverticulitis.? He does still report some left lower quadrant tenderness.? He is passing flatus but he has not had a bowel movement since Saturday.? He continues to have intermittent nausea but no vomiting.? His white count has improved with IV antibiotics.? Reviewed plan of care for continued IV antibiotics, serial abdominal exams, and monitoring for return of bowel function.? No questions or concerns at this time. 09/25:? No acute events overnight.? Patient is tolerating clear liquid diet well but still complaining of abdominal tenderness everywhere except LUQ.? No further chills, no fever.? Passing some liquid stool, nothing formed.? No rectal bleeding.? No abdominal guarding or rebound.? Patient reports 4-5 days of hospitalization with last round of diverticulitis.? White blood cell count continues to improve. 09/26: No events overnight. Tenderness improved. Diet changed to low fiber/low residual diet which patient tolerated. Surgery saw patient and was pleased with progress. Patient pleased with progress. Collaborative decision making yielded decision to discharge with oral antibiotics and pain medication for total 10 day antibiotic course. Return precautions discussed. Discharge in stable condition. Time spent discussing smoking cessation with patient: 3 to 10 minutes Status at Discharge Cognitive/behavioral status at discharge: awake, alert, oriented and pleasant Functional status at discharge: independent ambulation Overall status at discharge: patient is progressing back to baseline Time Spent with Patient Time attestation: Total time spent providing and/or coordinating discharge services: 33 minutes Time spent: Greater than 30 minutes Specific discharge activities: collaboration with patient and surgery service Exam Narrative: General: well appearing, well developed, obese, appears stated age. HEENT: normocephalic, atraumatic. Mucous membranes moist. EOMI, PERRLA, bilateral sclera anicteric, no conjunctival injection. Neck supple without JVD, lymphadenopathy, or bruit. Respiratory: clear to auscultation bilaterally. No rales/rhonchi/wheezes. Cardiovascular: Regular rate and rhythm, normal S1-S2 upon auscultation. No murmurs, rubs, or clicks. PMI is nondisplaced, capillary re-fill less t
[2023-09-26] MEDS: CIPROFLOXACIN 500 MG TAB PO (15:51)
== END 2023-09-26 16:05 | disposition home or self-care (01) ==
LOC: ANHED 22:18 → ANH3MED 23:05
PROVIDERS: Nurse Practitioner Acute Care; Nurse Practitioner Family; Admitting Provider Internal Medicine; Emergency Provider Student in an Organized Health Care Education/Training Program; PCP Student in an Organized Health Care Education/Training Program; Visit Provider Internal Medicine
DX: K57.92 Diverticulitis of intestine, part unspecified, without perforation or abscess without bleeding (principal); R82.4 Acetonuria; S81.851A Open bite, right lower leg, initial encounter; W54.0XXA Bitten by dog, initial encounter; G43.909 Migraine, unspecified, not intractable, without status migrainosus; R16.0 Hepatomegaly, not elsewhere classified; K76.0 Fatty (change of) liver, not elsewhere classified; I10 Essential (primary) hypertension; R63.0 Anorexia; K59.00 Constipation, unspecified; R19.7 Diarrhea, unspecified; E66.01 Morbid (severe) obesity due to excess calories; Z68.41 Body mass index [BMI] 40.0-44.9, adult; R59.0 Localized enlarged lymph nodes; D72.829 Elevated white blood cell count, unspecified; F12.90 Cannabis use, unspecified, uncomplicated; Z79.899 Other long term (current) drug therapy; Z83.79 Family history of other diseases of the digestive system
CPT/HCPCS: 36415; 74177; 80048; 80053; 81001; 83605; 83690; 85025; 85027; 87040; 96361; 96365; 96366; 96367; 96375; 99285; A9270; G0378; J0744; J1836; J2270; J2405; J7120; Q9967

== ENCOUNTER 2023-10-20 12:29 | Inpatient (IN) | payer OTHER, MEDICAID, SELFPAY ==
[2023-10-20] VITALS (13 sets, daily range): BP systolic 133–143; BP diastolic 66–90; PULSE 79–97; RESP 12–21; TEMP 37.1–37.5; O2SAT 94–100; BMI 41.6
--- NOTE | ~2023-10-20 | CT_ITS ---
EXAMINATION: CT abdomen pelvis w con DATE: 10/20/2023 18:40 INDICATION: Left lower quadrant pain. Tenderness. TECHNIQUE: Computed tomography (CT) of the abdomen and pelvis was performed with 100 cc Omnipaque 350 intravenous contrast. The dose-length product was 1610.24 mGy-cm. Automated exposure control and ite rative reconstruction technique were employed. COMPARISON: CT dated 09/23/2023. FINDINGS: There is progression of sigmoid diverticulitis with extraluminal gas, phlegmonous change an d fluid, consistent with perforation no discrete drainable fluid collection is identified. Lung bases unremarkable. Liver, spleen, pancreas, adrenal glands and kidneys are unremarkable. Normal appendix. IMPRESSION: 1. Progression of sigmoid diverticulitis with associated localized perforation. No discrete walled of f fluid collection to suggest drainable abscess. Reviewed, dictated and finalized at location A. BASE MODELER IMPRESSION: 1. Progression of sigmoid diverticulitis with associated localized perforation. No discrete walled off fluid collection to suggest drainable abscess.
[2023-10-20 13:34] LABS: Basophils Percent Auto 0.3 % (0.2-1.2); Eosinophils Absolute Auto 0.1 K/mm3 (0-0.3); Eosinophils Percent Auto 0.9 % (0-4.4); Hematocrit 43.4 % (42.0-52.0); Hemoglobin 13.7 g/dL (14.0-18.0); Immature Granulocyte Absolute 0.08 K/mm3 (0.00-0.031); Immature Granulocyte Percent A 0.6 % (0-0.5); Lymphocytes Absolute Auto 2.14 K/mm3 (0.9-3.2); Lymphocytes Percent Auto 15.2 % (18.3-44.2); Mean Corpuscular HGB Conc 31.6 g/dl (32-36); Mean Corpuscular Hemoglobin 25.8 pg (26-34); Mean Corpuscular Volume 81.6 fl (80-100); Mean Platelet Volume 9.3 fl (7.4-10.4); Monocytes Absolute Auto 0.9 K/mm3 (0.1-0.6); Monocytes Percent Auto 6.3 % (2.6-8.5); Neutrophils Absolute Auto 10.8 K/mm3 (1.3-6.7); Neutrophils Percent Auto 76.7 % (45.5-73.1); Platelet Count Result 371 k/mm3 (150-375); Red Blood Count 5.32 M/mm3 (4.6-6.20); Red Cell Distribution Width 13.2 % (11.5-14.5); White Blood Count 14.1 K/mm3 (4.5-10.0)
[2023-10-20 13:43] LABS: Alanine Aminotransferase 12 U/L (6-50); Alkaline Phosphatase 84 U/L (38-126); Anion Gap 9 mmol/L (8-16); Aspartate Amino Transferase 20 U/L (17-59); Bilirubin,Total 0.6 mg/dL (0.2-1.3); Blood Urea Nitrogen 11 mg/dL (9-20); Calcium 9.3 mg/dL (8.4-10.2); Carbon Dioxide 25 mmol/L (22-30); Chloride 102 mmol/L (98-107); Estimated CRCL calculation 145 ml/min; Estimated Glomerular Filt Rate > 60; Glucose 95 mg/dL (65-110); Lipase 35 U/L (23-300); Potassium 3.6 mmol/L (3.4-5.0); Sodium 136 mmol/L (137-145)
[2023-10-20 14:19] LABS: Appearance Urine Clear (Clear); Bacteria Urine None Seen /hpf; Bilirubin Urine Negative (Negative); Blood Urine Negative (Negative); Color Urine Dark Yellow (Yellow); Glucose Urine UA Negative (Negative); Ketones Urine Trace mg/dL (Negative); Leukocyte Esterase Ur 1+ LEU/UL (Negative); Need Manual Microscopic Reviewed; Nitrate Urine Negative (Negative); Protein Urine Trace mg/dL (Negative); RBC Urine 0-2 /hpf (0-2); Specific Grav Ur 1.016 (1.001-1.035); Squamous Epithelial Cell Urine None seen /hpf (Few); Urobilinogen Urine 0.2 mg/dL (<2.0); WBC Urine 0-5 /hpf; pH Urine 5.5 (5.0-9.0)
[2023-10-20 14:37] LABS: Add Urine Microscopic? YES
--- NOTE | 2023-10-20 17:53 | ED.GENADULT ---
[facility] - General Adult General Chief complaint: Abdominal Pain Stated complaint: Colon pain Time Seen by Provider: 10/20/23 17:29 Source: patient Mode of arrival: ambulatory Limitations: no limitations History of Present Illness HPI narrative: This is a 22-year-old male with PMH of diverticulitis who presents to the ED with chief complaint of left lower quadrant abdominal pain beginning 3-4 days ago. Reports that he had some leftover antibiotics from his last bout of diverticulitis few weeks ago and has been taking those for the past couple of days. He is unsure of what the antibiotics are. He reports difficulty with bowel movements due to pain. Reports the pain radiates from left lower quadrant to the right lower. Reports 8/10 pain. Denies nausea, fevers, chills, vomiting, diarrhea, urinary problems. Related Data Home Medications Medication Instructions Recorded Confirmed sumatriptan succinate 50 mg tablet 50 mg PO PRN PRN Migraine Headache 05/13/23 10/20/23 Allergies Allergy/AdvReac Type Severity Reaction Status Date / Time No Known Drug Allergies Allergy Unknown Unknown Verified 10/20/23 12:32 Review of Systems Review of Systems: All systems as dictated in [facility] Past Medical History Medical History Diverticulitis of intestine with perforation and abscess Dog bite of right lower leg Surgical History Surgical History History of colonoscopy 05/17/[address] Alfredo Parish Family History Family History Father Diverticulitis large intestine Grandparent Diverticulitis large intestine Acute myocardial infarction Cerebrovascular accident Other Diverticulitis large intestine Mother Acute myocardial infarction Cerebrovascular accident Social History Social History Smoking status: Never smoker Second hand tobacco smoke exposure: No Additional smoking assessment comments: social THC smoker Alcohol intake: current Substance use: never Substance use type: does not use Other substance usage details: DAILY Last use: 11/29/22 Lack of Transportation: No Lack of Food: Never True Current Housing: I Have Housing Concerned About Future Housing: No Difficulty Paying Gas/Electric Bills: No Difficulty Paying for Meds: No Currently Unemployed: No Education: High School Diploma/GED Difficulty w/ Childcare or Family Care: No Living arrangements: with family Spiritual care concerns: No Exam Narrative: GENERAL: Well-appearing, well-nourished, and in no acute distress. HEAD: Normocephalic, atraumatic. EYES: PERRLA and EOMI. ENT: Nares clear, no rhinorrhea or epistaxis. Mucous membranes moist. Oropharynx without tonsillar hypertrophy exudate or other lesions. NECK: Supple. No adenopathy or masses. CHEST: No respiratory distress. Clear to auscultation. No wheezes rales or rhonchi HEART: Regular rate and rhythm. No murmur heard. Normal peripheral pulses. ABDOMEN: Left lower and right lower quadrant tenderness. Soft, nondistended, normal active bowel sounds. Negative peritoneal signs. MSK: Normal range of motion. No edema. SKIN: Warm, dry, no rash. NEURO: Alert and oriented x3. No focal deficits. PSYCH: Normal mood and affect. Course Course Emergency Course: Consult 1999: Spoke with Dr. Hays (Surgery); recommends continuing antibiotics, they will consult on the patient. Re-evaluation 2002: Spoke with the patient and he feels the pain is gone from 07/12. He does not feel comfortable going home with this. Vital Signs Vital signs: Vital Signs Temperature 98.8 F 10/20/23 13:00 Pulse Rate 84 10/20/23 13:00 Respiratory Rate 16 10/20/23 13:00 Blood Pressure 135/83 10/20/23 13:00 Pulse Oximetry 98 10/20/23 13:
[2023-10-20] MEDS: MORPHINE SULFATE (*CRX) 4 MG/ML INJ IV PUSH (18:04)
[2023-10-20] MEDS: metroNIDAZOLE 500 MG/ISO 100ML 500 MG/100 ML BAG 100 MG IVPB (19:56)
[2023-10-20] MEDS: HYDROmorphone HCL INJ (*CRX) 1 MG/ML SYR 0.5 MG IV PUSH (21:33)
--- NOTE | 2023-10-20 21:53 | ADMGEN ---
This patient, Sahw Fuentes, was admitted to 3 [facility] Surg Room 315-01. Patient/family oriented to hospital policies and general routines including ID bracelet, bed and alarms, visiting hours, pain management, procedures, bathroom and other care routines, personal items, smoking policy, room service/diet, and visiting hours. Information on how to activate the Rapid Response Team has been discussed. Patient/Family are encouraged to report perceived risks to care and to ask questions if they do not understand what they are told or what they should do.
[2023-10-20] MEDS: SODIUM CHLORIDE 0.9% IV 1,000 ML 125 ML IV CONT (22:01)
[2023-10-21] MEDS: metroNIDAZOLE 500 MG/ISO 100ML 500 MG/100 ML BAG 100 MG IVPB ×3 (03:00→19:16)
--- NOTE | 2023-10-21 03:42 | PM.IMHP ---
H&P: HPI History of Present Illness Date/Time: 10/21/23 03:42 Chief Complaint: Lower abdominal pain, ?similar to when I had prior diverticulitis? Narrative: 22-year-old male with past medical history of diverticulosis with prior history of diverticulitis with abscess who presented to the ER with 1 day of abdominal pain. The patient reports that he had his 1st episode of diverticulitis this past November. Since that time he has had what sounds like 3 separate occurrences of diverticulitis. His most recent occurrence was in September. He was discharged home on the 7 days of antibiotics. He called his primary provider when he was still having some abdominal discomfort after his initial 7 days of antibiotic therapy. His primary care provider provided him with a refill of the medications. He took the medications until about fdc through the 2nd cycle at which time his abdominal pain resolved. So he stopped taking the medications. That was about the middle of September. Then 3 days ago he began having left lower abdominal pain similar to when he had prior diverticulitis. The pain was aching and crampy in nature and more sharp in the left lower quadrant and radiated across to midline. Pain across the midline was more aching. The pain would occasionally be more severe 8/10 in intensity. When the pain recurred he restarted the antibiotics. It appears they was probably prescribed Cipro and Flagyl when reviewing the external med history. He had been taking some stool softeners as he thought that he may be having pain due to constipation. Since taking the stool softeners he has been having multiple mushy brown to dark stools a day. The pain became so bad today that he decided to come to the ER for evaluation as he thought he may have another infection. He was having some chills but did not measure a fever. He denies any hematochezia or melena. He has been having difficulty passing bowel movement and urine due to his abdominal pain. He reports the pain is worse when he tries to have a bowel movement. He has had some nausea but no vomiting. He reports that he was feeling so bad that he did not eat anything day of presentation/admission. He subsequently has not had a bowel movement. He does report daytime eats he is having increased sensation of gas moving throughout his abdomen. He is still passing flatulence. Despite having multiple bowel movements today patient is still reporting feeling constipated. I suspect this more sensation of bloating. He finds it difficult to describe. Review of Systems Review of Systems: 12 systems were reviewed with pertinent positives and negatives per HPI. Except as documented in the HPI, all other systems were reviewed and are negative. Patient does report some excessive daytime fatigue and history of significant snoring. [facility] Past Medical History Medical History (Updated 10/21/23 @ 08:30 by Collette Jaimes DO) Diverticulitis of intestine with perforation and abscess Dog bite of right lower leg Obesity, morbid, BMI 40.0-49.9 Surgical History Surgical History History of colonoscopy 05/17/[address] Alfredo Parish Family History Family History Father Diverticulitis large intestine Grandparent Diverticulitis large intestine Acute myocardial infarction Cerebrovascular accident Mother Acute myocardial infarction Cerebrovascular accident Social History Social History (Updated 10/21/23 @ 08:35 by Collette Jaimes DO) Social History: The patient is single 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 He smokes marijuana daily. He denies any history of prior tobacco use. He drinks alcohol on on occasion in in moderation. Code status: Full code Surrogate decision maker: Amy Jeremiah (mother) Smoking status: Nev
[2023-10-21 04:58] VITALS: BP 126/77; PULSE 71; RESP 16; TEMP 37.1; O2SAT 98
[2023-10-21] MEDS: SODIUM CHLORIDE 0.9% IV 1,000 ML 125 ML IV CONT ×3 (06:57→23:37)
[2023-10-21 08:39] LABS: Basophils Percent Auto 0.4 % (0.2-1.2); Eosinophils Absolute Auto 0.2 K/mm3 (0-0.3); Eosinophils Percent Auto 1.8 % (0-4.4); Hematocrit 39.9 % (42.0-52.0); Hemoglobin 12.5 g/dL (14.0-18.0); Immature Granulocyte Absolute 0.06 K/mm3 (0.00-0.031); Immature Granulocyte Percent A 0.6 % (0-0.5); Lymphocytes Absolute Auto 1.57 K/mm3 (0.9-3.2); Lymphocytes Percent Auto 16.4 % (18.3-44.2); Mean Corpuscular HGB Conc 31.3 g/dl (32-36); Mean Corpuscular Hemoglobin 25.8 pg (26-34); Mean Corpuscular Volume 82.3 fl (80-100); Mean Platelet Volume 9.4 fl (7.4-10.4); Monocytes Absolute Auto 0.9 K/mm3 (0.1-0.6); Monocytes Percent Auto 9.4 % (2.6-8.5); Neutrophils Absolute Auto 6.9 K/mm3 (1.3-6.7); Neutrophils Percent Auto 71.4 % (45.5-73.1); Platelet Count Result 314 k/mm3 (150-375); Red Blood Count 4.85 M/mm3 (4.6-6.20); White Blood Count 9.6 K/mm3 (4.5-10.0)
[2023-10-21 08:55] LABS: Anion Gap 8 mmol/L (8-16); Blood Urea Nitrogen 11 mg/dL (9-20); Calcium 8.6 mg/dL (8.4-10.2); Carbon Dioxide 27 mmol/L (22-30); Chloride 100 mmol/L (98-107); Estimated CRCL calculation 162 ml/min; Estimated Glomerular Filt Rate > 60; Glucose 89 mg/dL (65-110); Potassium 3.3 mmol/L (3.4-5.0); Sodium 135 mmol/L (137-145)
[2023-10-21] MEDS: HYDROmorphone HCL INJ (*CRX) 1 MG/ML SYR 0.5 MG IV PUSH ×4 (10:26→23:34)
[2023-10-21] MEDS: ENOXAPARIN 40 MG/0.4 ML SYRINGE SUB-Q (10:26)
--- NOTE | 2023-10-21 10:26 | PM.CNGS ---
Assessment and Plan Assessment and plan (1) Perforation of sigmoid colon due to diverticulitis: Code(s): K57.20 - Diverticulitis of large intestine with perforation and abscess without bleeding Status: Acute Assessment and Plan: CT scan reviewed and discussed with patient and his mother. He presents with recurrent sigmoid diverticulitis with microperforation, no CT evidence of abscess. No peritoneal signs on exam. This is his 2nd-3rd episode in the past month. Discussed the case with Dr. Hays. We would recommend to continue with conservative treatment at this time with IV antibiotics, bowel rest, and IV fluids. Will continue to follow along with serial abdominal exams and labs. Discussed with the patient that hopefully he will again improve with antibiotic treatment, but he will likely need surgery in the near future once this acute episode has resolved to prevent recurrent episodes of diverticulitis. Patient and his mother understand. (2) Obesity, morbid, BMI 40.0-49.9: Code(s): E66.01 - Morbid (severe) obesity due to excess calories Status: Acute Plan I have discussed the patient's case and plan of care with Dr. Hays. Thank you for allowing us to see the patient in consultation and we will continue to follow along with you. History of Present Illness Consult details Consult date: 10/21/23 Reason for consult: other (Perforated diverticulitis) Requesting physician: Justino Ferguson PA-C Narrative: This is a 22-year-old man known to our service from previous episodes of diverticulitis. He was seen in November for diverticulitis with perforation and abscess that was treated conservatively with antibiotics. He returned about a week later and required further IV antibiotics, but then improved. He then had a colonoscopy in April of [address] Parish that showed diverticulosis in the sigmoid colon. He returned in early September with another episode of diverticulitis. He was treated again conservatively with IV antibiotics and discharged on ciprofloxacin and metronidazole. He completed that course of oral antibiotics. A few days before , he noticed mild left lower quadrant pain similar to his previous episodes. He immediately called his primary care provider and was started back on ciprofloxacin and metronidazole. He took a few days of the antibiotics and his symptoms improved, therefore he stopped taking the medication. Then, last Saturday he had a large liquid bowel movement that was followed by intense left lower quadrant abdominal pain. He restarted the antibiotics he had left from his primary physician. He reports progression of his abdominal pain over the next few days regardless of antibiotics. Reports nausea and chills, but no fever or vomiting. His pain became more severe yesterday and he presented back to the ER for evaluation. CT scan of the abdomen and pelvis showed diverticulitis with micro perforation. No CT evidence of an abscess. [place] [id number]. The patient is now seen in consultation for perforated diverticulitis. His abdominal pain has improved after receiving IV Dilaudid. He is currently on IV ceftriaxone and metronidazole. Repeat labs this morning showed his white blood cell count normalized. Review of Systems Review of Systems: All systems reviewed & are unremarkable except as noted in HPI and below PMFSH Past Medical History Medical History Diverticulitis of intestine with perforation and abscess Dog bite of right lower leg Obesity, morbid, BMI 40.0-49.9 Surgical History Surgical History History of colonoscopy 05/17/[address] Alfredo Parish Family History Family History Father Diverticulitis large intestine Grandparent Diverticulitis large intestine Acute myoc
[2023-10-21] MEDS: POTASSIUM CHLORIDE 20 MEQ ER TABLET 40 MEQ PO (11:10)
[2023-10-21 14:00] VITALS: BP 159/92; PULSE 74; RESP 17; TEMP 36.2; O2SAT 100
--- NOTE | 2023-10-21 14:05 | PM.IMPN ---
Progress Note: A&P Assessment and Plan (1) Diverticulitis: Code(s): K57.92 - Diverticulitis of intestine, part unspecified, without perforation or abscess without bleeding Status: Acute Assessment and Plan: recurrent diverticulitis. General surgery has been consulted - recommend conservative therapy while inpatient and will likely need outpatient intervention in near future Will continue antibiotic therapy with Rocephin and Flagyl. IVF, Will advance diet as tolerated to low residual diet. Zofran, morphine and [place] and ordered as needed for pain. Plan Patient does have morbid obesity and reports snoring. He has a extremely crowded posterior oropharynx. Will order ApneaLink to screen for obstructive sleep apnea. If positive patient would benefit from outpatient sleep study. Subjective Date/time seen: 10/21/23 14:05 Interval history: Patient is ambulating from bathroom, reports he had a small loose BM with notable mucus present. This is the first he has seen that. He is not requiring pain medication at this time, reports it is tolerable. General surgery consulted and recommending conservative management with bowel rest, ABX, but will need intervention in near future which can be scheduled outpatient. Will work to advance diet as tolerated, monitor labs and plan to d/c when stable. Review of Systems Review of Systems: All systems reviewed & are unremarkable except as noted in HPI and below Exam Narrative: Weight 139.4 kg BMI 41.7 Const: Other: Morbidly obese, no acute distress, appears stated age HENMT: Other: Tacky mucous membranes, no oral pharyngeal erythema, significantly crowded posterior oropharynx Eyes: Pupils: Equal, round and reactive pupils present EOM: EOMs intact bilaterally Other: Pupils are equal and reactive, no scleral icterus, no conjunctival pallor Neck: Neck: supple and no JVD Other: Large neck circumference, no JVD, no lymphadenopathy, supple Resp: Effort & Inspection: normal respiratory effort Auscultation: clear to auscultation bilaterally Other: Clear to auscultation bilaterally, no increased work of breathing Cardio: Rate: regular rate Rhythm: regular rhythm Other: Regular rate, regular rhythm, 2+ bilateral radial pedal pulses GI: Other: Soft, obese, tender in the left lower quadrant, normoactive bowel sounds Skin: Other: No pallor, non jaundice Neuro: General: gait normal Other: Alert oriented, speech is clear, no facial asymmetry Extrem: General: normal to inspection Other: No clubbing, cyanosis or edema, moves all extremities equally Psych: Affect: normal affect Other: Appropriate mood and affect, pleasant and cooperative, judgment and insight intact Objective Data Vital Signs Vital Signs: Vital Signs - 24 hr 10/20/23 18:06 10/20/23 19:33 10/20/23 21:37 Temperature Pulse Rate 97 82 88 Respiratory Rate 12 18 20 Blood Pressure 137/76 143/66 H 133/77 Pulse Oximetry 99 100 95 Oxygen Delivery 10/20/23 21:57 10/20/23 19:55 10/20/23 20:00 Temperature Pulse Rate 81 88 Respiratory Rate 20 Blood Pressure Pulse Oximetry 94 96 Oxygen Delivery Room Air 10/20/23 20:17 10/20/23 20:30 10/20/23 21:02 Temperature Pulse Rate 81 83 79 Respiratory Rate 19 19 19 Blood Pressure Pulse Oximetry 100 100 100 Oxygen Delivery 10/20/23 21:15 10/20/23 21:30 10/20/23 22:00 Temperature 99.5 F Pulse Rate 80 91 95 Respiratory Rate 18 21 H 18 Blood Pressure 141/90 H Pulse Oximetry 99 100 100 Oxygen Delivery 10/21/23 04:58 10/20/23 22:10 Temperature 98.8 F 99.5 F Pulse Rate 71 95 Respiratory Rate 16 18 Blood Pressure 126/77 141/90 H Pulse Oximetry 98 100 Oxygen Delivery Intake/Output Intake/Output: Intake & Output 10/18/23 10/19/23 10/20/23 10/21/23 23:59 23:59 23:59 23:59 Intake Total 150 1200 Balance 15
[2023-10-21] MEDS: ACETAMINOPHEN 500 MG TABLET 1000 MG PO (19:15)
[2023-10-21] MEDS: ONDANSETRON INJ 4 MG/2 ML VIAL IV PUSH (19:16)
[2023-10-21 20:40] VITALS: BP 118/53; PULSE 77; RESP 18; TEMP 36.2; O2SAT 99
[2023-10-22] MEDS: ONDANSETRON INJ 4 MG/2 ML VIAL IV PUSH ×3 (00:24→23:30)
[2023-10-22] MEDS: ACETAMINOPHEN 500 MG TABLET 1000 MG PO ×3 (01:28→23:30)
[2023-10-22 04:06] VITALS: O2SAT 98
[2023-10-22] MEDS: metroNIDAZOLE 500 MG/ISO 100ML 500 MG/100 ML BAG 100 MG IVPB ×3 (04:19→21:01)
[2023-10-22 04:35] VITALS: BP 127/68; PULSE 73; RESP 16; TEMP 36.6; O2SAT 98
[2023-10-22 07:04] LABS: Hematocrit 40.3 % (42.0-52.0); Hemoglobin 12.7 g/dL (14.0-18.0); Mean Corpuscular HGB Conc 31.5 g/dl (32-36); Mean Corpuscular Volume 82.6 fl (80-100); Mean Platelet Volume 9.6 fl (7.4-10.4); Platelet Count Result 324 k/mm3 (150-375); Red Blood Count 4.88 M/mm3 (4.6-6.20); Red Cell Distribution Width 12.7 % (11.5-14.5); White Blood Count 9.3 K/mm3 (4.5-10.0)
[2023-10-22] MEDS: HYDROmorphone HCL INJ (*CRX) 1 MG/ML SYR 0.5 MG IV PUSH (07:11)
[2023-10-22 07:47] LABS: Anion Gap 10 mmol/L (8-16); Blood Urea Nitrogen 8 mg/dL (9-20); Calcium 8.8 mg/dL (8.4-10.2); Carbon Dioxide 22 mmol/L (22-30); Chloride 104 mmol/L (98-107); Estimated CRCL calculation 205 ml/min; Estimated Glomerular Filt Rate > 60; Glucose 81 mg/dL (65-110); Potassium 3.5 mmol/L (3.4-5.0); Sodium 136 mmol/L (137-145)
--- NOTE | 2023-10-22 08:18 | PM.IMPN ---
Progress Note: A&P Assessment and Plan (1) Diverticulitis: Code(s): K57.92 - Diverticulitis of intestine, part unspecified, without perforation or abscess without bleeding Status: Acute Assessment and Plan: recurrent diverticulitis. General surgery has been consulted - recommend conservative therapy while inpatient and will likely need outpatient intervention in near future Will continue antibiotic therapy with Rocephin and Flagyl. IVF, Will advance diet as tolerated to low residual diet. Zofran, morphine and Blunt and ordered as needed for pain. 10/22: Advancing diet to low fiber for dinner. If he tolerates a diet he can likely go home tomorrow. (2) KARL (obstructive sleep apnea): Code(s): G47.33 - Obstructive sleep apnea (adult) (pediatric) Status: Acute Assessment and Plan: Concerns for KARL given habitus, crowded oropharynx, and snoring. apnea link may need formal sleep study as an outpatient. Plan Feeding: low fiber Analgesia: tylenol, norco, and prn dilaudid Thromboembolic prophylaxis: lovenox Ulcer prophylaxis: na Glycemic control: na Bowel regimen: na Lines: piv Antibiotics: flagyl and rocephin Disposition: home when tolerating a diet and no abdominal pain Subjective Date/time seen: 10/22/23 08:18 Interval history: This is a 22-year-old man known to our service from previous episodes of diverticulitis.? He was seen in November for diverticulitis with perforation and abscess that was treated conservatively with antibiotics.? He returned about a week later and required further IV antibiotics, but then improved.? He then had a colonoscopy in April of [address] Parish that showed diverticulosis in the sigmoid colon.? He returned in early September with another episode of diverticulitis.? He was treated again conservatively with IV antibiotics and discharged on ciprofloxacin and metronidazole.? He completed that course of oral antibiotics.? A few days before Thanks, he noticed mild left lower quadrant pain similar to his previous episodes.? He immediately called his primary care provider and was started back on ciprofloxacin and metronidazole.? He took a few days of the antibiotics and his symptoms improved, therefore he stopped taking the medication.? Then, last Saturday he had a large liquid bowel movement that was followed by intense left lower quadrant abdominal pain.? He restarted the antibiotics he had left from his primary physician.? He reports progression of his abdominal pain over the next few days regardless of antibiotics.? Reports nausea and chills, but no fever or vomiting.? His pain became more severe yesterday and he presented back to the ER for evaluation.? CT scan of the abdomen and pelvis showed diverticulitis with micro perforation.? No CT evidence of an abscess.? [place] [id number].? The patient is now seen in consultation for perforated diverticulitis.? His abdominal pain has improved after receiving IV Dilaudid.? He is currently on IV ceftriaxone and metronidazole.? Repeat labs this morning showed his white blood cell count normalized. 10/22: Doing well today. States he feels better than when he first presented. Abdominal pain is a 2/10. Tolerated his full liquid diet for lunch. Will advance to low fiber per surgery. Review of Systems Review of Systems: All systems reviewed & are unremarkable except as noted in HPI and below Exam Narrative: General: well appearing, well developed, well nourished, appears stated age. HEENT: normocephalic, atraumatic. Mucous membranes moist. EOMI, PERRLA, bilateral sclera anicteric, no conjunctival injection. Neck supple without JVD, lymphadenopathy, or bruit. Respiratory: clear to auscultation bilaterally. No rales/rhonic/wheezes. Cardiovascular: Regular rate and rhythm, normal S1-S2 upon auscultation. No murmurs, rubs, or clicks. PMI is nondisplaced, capillary re-fill less than 3 secon
[2023-10-22] MEDS: SODIUM CHLORIDE 0.9% IV 1,000 ML 125 ML IV CONT (08:46)
[2023-10-22] MEDS: ENOXAPARIN 40 MG/0.4 ML SYRINGE SUB-Q (08:48)
--- NOTE | 2023-10-22 10:49 | PM.PNGS ---
Progress Note: A&P Assessment and Plan (1) Perforation of sigmoid colon due to diverticulitis: Code(s): K57.20 - Diverticulitis of large intestine with perforation and abscess without bleeding Status: Acute Assessment and Plan: Clinically improving. WBC normal. Will start advancing his diet. Continue IV antibiotics. Possibly discharge in the next 1-2 days. Will need eventual sigmoidectomy to prevent recurrence once this acute episode has resolved Plan I have discussed the patient's case and plan of care with Dr. Hays. Subjective Subjective Date/Time Seen: 10/22/23 10:49 Patient reports: no new complaints, feels better, pain is less, tolerating liquids well and afebrile Interval history: Patient feeling much better today. Abdominal pain and tenderness improved. No nausea, vomiting, or bloating. No acute events overnight. Exam Const: General: comfortable and no acute distress GI: Inspection: non-distended GI Palp: Yes Soft to palpation, Yes Tenderness to palpation present (GI) (mild RLQ and LLQ tenderness, much improved), No Guarding due to palpation present (GI) and No Rebound tenderness present Auscultation: normal bowel sounds Objective Data Vital Signs Vital Signs: Vital Signs - 24 hr 10/21/23 14:00 10/21/23 20:00 10/21/23 20:40 Temperature 97.1 F L 97.2 F L Pulse Rate 74 77 Respiratory Rate 17 18 Blood Pressure 159/92 H 118/53 L Pulse Oximetry 100 99 Oxygen Delivery Room Air 10/22/23 04:06 10/22/23 04:35 Temperature 97.9 F Pulse Rate 73 Respiratory Rate 16 Blood Pressure 127/68 Pulse Oximetry 98 98 Oxygen Delivery Room Air Intake/Output Intake/Output: Intake & Output 10/19/23 10/20/23 10/21/23 10/22/23 23:59 23:59 23:59 23:59 Intake Total 150 3400 1000 Balance 150 3400 1000 Meds/Results Medications: Active Medications Generic Name Dose Route Start Last Admin Trade Name Freq PRN Reason Stop Dose Admin Acetaminophen 1,000 mg 10/21/23 10:39 10/22/23 01:28 Acetaminophen 500 Mg Tablet PO 1,000 mg Q6H PRN Administration Mild Pain (1-3) or Fever Hydrocodone Bitart/Acetaminophen 1 tab 10/21/23 08:20 Hydrocodone/Acetaminophen (*Crx) 5-325 Mg Tablet PO Q4H PRN Pain 4-6 Enoxaparin Sodium 40 mg 10/21/23 09:00 10/22/23 08:48 Enoxaparin 40 Mg/0.4 Ml Syringe SUB-Q 40 mg DAILY MIKI Administration Hydromorphone HCl 0.5 mg 10/21/23 10:39 10/22/23 07:11 Hydromorphone Hcl Inj (*Crx) 1 Mg/Ml Syr IV PUSH 0.5 mg Q3H PRN Administration Pain Rated 7-10 Ceftriaxone Sodium 1 gm in 50 mls @ 100 mls/hr 10/21/23 20:00 10/21/23 20:42 Rocephin 1 Gm/Ns 50 Ml IVPB 100 mls/hr Q24H MIKI Administration Metronidazole 500 mg in 100 mls @ 100 mls/hr 10/21/23 04:00 10/22/23 04:19 Flagyl 500 Mg/Iso Soln 100 Ml IVPB 100 mls/hr Q8H MIKI Administration Sodium Chloride 1,000 mls @ 70 mls/hr 10/20/23 20:20 10/22/23 08:46 Normal Saline Iv IV CONT 125 mls/hr .[id number] MIKI Administration Ondansetron HCl 4 mg 10/20/23 20:18 10/22/23 07:11 Ondansetron Inj 4 Mg/2 Ml Vial IV PUSH 4 mg Q4H PRN Administration Nausea Sumatriptan Succinate 50 mg 10/21/23 08:20 Sumatriptan Succinate 25 Mg Tablet PO PRN PRN Migraine Headache Radiology Results: ITS Impressions Abdomen/Pelvis CT 10/20/23 18:44 IMPRESSION: 1. Progression of sigmoid diverticulitis with associated localized perforation. No discrete walled off fluid collection to suggest drainable abscess. Labs Labs: Laboratory Results - last 24 hr 10/22/23 06:42 WBC 9.3 RBC 4.88 Hgb 12.7 L Hct 40.3 L MCV 82.6 MCH 26.0 MCHC 31.5 L RDW 12.7 Plt Count 324 MPV 9.6 Sodium 136 L Potassium 3.5 Chloride 104 Carbon Dioxide 22 Anion Gap 10 BUN 8 L Creatinine 0.70 Estim Creat Clear Calc 205 Estimated GFR > 60 Glucose 81 Calcium 8.8
[2023-10-22] MEDS: POTASSIUM CHLORIDE 20 MEQ ER TABLET PO (11:10)
[2023-10-22 14:00] VITALS: BP 153/85; PULSE 94; RESP 20; TEMP 36; O2SAT 99
--- NOTE | 2023-10-22 16:53 | PC.NURSE ---
I have reviewed Stephanie Richmond LPN's chart and agree with her assessment and findings.
[2023-10-22] MEDS: SODIUM CHLORIDE 0.9% IV 250 ML 100 ML (20:17)
[2023-10-22 21:01] VITALS: BP 119/72; PULSE 70; RESP 18; TEMP 36.6; O2SAT 98
[2023-10-23] MEDS: metroNIDAZOLE 500 MG/ISO 100ML 500 MG/100 ML BAG 100 MG IVPB (03:55)
[2023-10-23 04:49] VITALS: BP 142/89; PULSE 67; RESP 16; TEMP 36.6; O2SAT 99
[2023-10-23] MEDS: ONDANSETRON INJ 4 MG/2 ML VIAL IV PUSH (05:19)
[2023-10-23] MEDS: ACETAMINOPHEN 500 MG TABLET 1000 MG PO (05:19)
[2023-10-23 06:44] LABS: Hemoglobin 12.3 g/dL (14.0-18.0); Mean Corpuscular HGB Conc 31.5 g/dl (32-36); Mean Corpuscular Hemoglobin 25.6 pg (26-34); Mean Corpuscular Volume 81.3 fl (80-100); Mean Platelet Volume 9.8 fl (7.4-10.4); Platelet Count Result 314 k/mm3 (150-375); Red Cell Distribution Width 12.8 % (11.5-14.5); White Blood Count 8.8 K/mm3 (4.5-10.0)
[2023-10-23 07:30] LABS: Potassium 3.7 mmol/L (3.4-5.0)
[2023-10-23 07:36] LABS: Anion Gap 10 mmol/L (8-16); Blood Urea Nitrogen 7 mg/dL (9-20); Calcium 8.8 mg/dL (8.4-10.2); Carbon Dioxide 25 mmol/L (22-30); Chloride 102 mmol/L (98-107); Estimated CRCL calculation 205 ml/min; Estimated Glomerular Filt Rate > 60; Glucose 88 mg/dL (65-110); Sodium 137 mmol/L (137-145)
[2023-10-23 08:00] VITALS: O2SAT 99
[2023-10-23] MEDS: ENOXAPARIN 40 MG/0.4 ML SYRINGE SUB-Q (09:18)
--- NOTE | 2023-10-23 10:42 | PM.PNGS ---
Progress Note: A&P Assessment and Plan (1) Perforation of sigmoid colon due to diverticulitis: Code(s): K57.20 - Diverticulitis of large intestine with perforation and abscess without bleeding Status: Acute Assessment and Plan: Tolerating a low fiber diet. No abdominal pain or tenderness. WBC normal. Okay to discharge from a surgical standpoint on oral antibiotics. F/u with Dr. Hays in 2 weeks. Plan I have discussed the patient's case and plan of care with Dr. Hays. Subjective Subjective Date/Time Seen: 10/23/23 10:42 Patient reports: no new complaints Interval history: Patient continues to improve. No abdominal pain, nausea, or vomiting. Afebrile and WBC normal. Exam Const: General: comfortable and no acute distress Orientation/consciousness: patient oriented x3 GI: Inspection: non-distended GI Palp: Yes Soft to palpation, No Tenderness to palpation present (GI) and No Guarding due to palpation present (GI) Auscultation: normal bowel sounds Objective Data Vital Signs Vital Signs: Vital Signs - 24 hr 10/22/23 14:00 10/22/23 21:01 10/22/23 20:00 Temperature 96.8 F L 97.9 F Pulse Rate 94 70 Respiratory Rate 20 18 Blood Pressure 153/85 H 119/72 Pulse Oximetry 99 98 Oxygen Delivery Room Air 10/23/23 04:49 10/23/23 08:00 Temperature 97.9 F Pulse Rate 67 Respiratory Rate 16 Blood Pressure 142/89 H Pulse Oximetry 99 99 Oxygen Delivery Room Air Intake/Output Intake/Output: Intake & Output 10/20/23 10/21/23 10/22/23 10/23/23 23:59 23:59 23:59 23:59 Intake Total 150 3450 2424 990 Balance 150 3450 2424 990 Meds/Results Medications: Active Medications Generic Name Dose Route Start Last Admin Trade Name Freq PRN Reason Stop Dose Admin Acetaminophen 1,000 mg 10/21/23 10:39 10/23/23 05:19 Acetaminophen 500 Mg Tablet PO 1,000 mg Q6H PRN Administration Mild Pain (1-3) or Fever Hydrocodone Bitart/Acetaminophen 1 tab 10/21/23 08:20 Hydrocodone/Acetaminophen (*Crx) 5-325 Mg Tablet PO Q4H PRN Pain 4-6 Enoxaparin Sodium 40 mg 10/21/23 09:00 10/23/23 09:18 Enoxaparin 40 Mg/0.4 Ml Syringe SUB-Q 40 mg DAILY MIKI Administration Hydromorphone HCl 0.5 mg 10/21/23 10:39 10/22/23 07:11 Hydromorphone Hcl Inj (*Crx) 1 Mg/Ml Syr IV PUSH 0.5 mg Q3H PRN Administration Pain Rated 7-10 Ceftriaxone Sodium 1 gm in 50 mls @ 100 mls/hr 10/21/23 20:00 10/22/23 20:08 Rocephin 1 Gm/Ns 50 Ml IVPB 100 mls/hr Q24H MIKI Administration Metronidazole 500 mg in 100 mls @ 100 mls/hr 10/21/23 04:00 10/23/23 03:55 Flagyl 500 Mg/Iso Soln 100 Ml IVPB 100 mls/hr Q8H MIKI Administration Ondansetron HCl 4 mg 10/20/23 20:18 10/23/23 05:19 Ondansetron Inj 4 Mg/2 Ml Vial IV PUSH 4 mg Q4H PRN Administration Nausea Sumatriptan Succinate 50 mg 10/21/23 08:20 Sumatriptan Succinate 25 Mg Tablet PO PRN PRN Migraine Headache Radiology Results: ITS Impressions Abdomen/Pelvis CT 10/20/23 18:44 IMPRESSION: 1. Progression of sigmoid diverticulitis with associated localized perforation. No discrete walled off fluid collection to suggest drainable abscess. Labs Labs: Laboratory Results - last 24 hr 10/23/23 06:21 WBC 8.8 RBC 4.80 Hgb 12.3 L Hct 39.0 L MCV 81.3 MCH 25.6 L MCHC 31.5 L RDW 12.8 Plt Count 314 MPV 9.8 Sodium 137 Potassium 3.7 Chloride 102 Carbon Dioxide 25 Anion Gap 10 BUN 7 L Creatinine 0.70 Estim Creat Clear Calc 205 Estimated GFR > 60 Glucose 88 Calcium 8.8
--- NOTE | 2023-10-23 12:37 | PM.DS ---
DS: Admitting Diagnosis Discharge Date 10/23/23 Admitting Diagnosis diverticulitis DS: Discharge Diagnosis Discharge Diagnosis (1) Diverticulitis: Code(s): K57.92 - Diverticulitis of intestine, part unspecified, without perforation or abscess without bleeding Status: Acute Assessment and Plan: recurrent diverticulitis General surgery following - follow up with surgery in 2 weeks Will need eventual sigmoidectomy to prevent recurrence once this acute episode has resolved Will continue antibiotic therapy with cipro and Flagyl PO for 7 days low fiber diet Zofran PRN (2) KARL (obstructive sleep apnea): Code(s): G47.33 - Obstructive sleep apnea (adult) (pediatric) Status: Acute Assessment and Plan: apnea link - does not indicate need for management at this time DS: Summary Hospital Course Hospital Course: This is a 22-year-old man known to our service from previous episodes of diverticulitis. He was seen in November for diverticulitis with perforation and abscess that was treated conservatively with antibiotics. He returned about a week later and required further IV antibiotics, but then improved. He then had a colonoscopy in April of [address] Parish that showed diverticulosis in the sigmoid colon. He returned in early September with another episode of diverticulitis. He was treated again conservatively with IV antibiotics and discharged on ciprofloxacin and metronidazole. He completed that course of oral antibiotics. A few days before , he noticed mild left lower quadrant pain similar to his previous episodes. He immediately called his primary care provider and was started back on ciprofloxacin and metronidazole. He took a few days of the antibiotics and his symptoms improved, therefore he stopped taking the medication. Then, last Saturday he had a large liquid bowel movement that was followed by intense left lower quadrant abdominal pain. He restarted the antibiotics he had left from his primary physician. He reports progression of his abdominal pain over the next few days regardless of antibiotics. Reports nausea and chills, but no fever or vomiting. His pain became more severe and he presented back to the ER for evaluation. CT scan of the abdomen and pelvis showed diverticulitis with micro perforation. No CT evidence of an abscess. He received IV ceftriaxone and metronidazole. Will send home on cipro and flagyl to complete 7 day course. He is to follow up with surgery in 2 weeks to consider outpatient procedure. He is tolerating a low fiber diet and should continue until his follow up. Status at Discharge Functional status at discharge: independent ambulation Overall status at discharge: patient is progressing back to baseline Time Spent with Patient Time attestation: Total time spent providing and/or coordinating discharge services: Exam Narrative: General: well appearing, well developed, well nourished, appears stated age. HEENT: normocephalic, atraumatic. Mucous membranes moist. EOMI, PERRLA. Respiratory: clear to auscultation bilaterally. No rales/rhonic/wheezes. Cardiovascular: RRR, normal S1-S2 upon auscultation. No murmurs, rubs, or clicks. Abdomen: Soft, round, no pulsatile masses, non-distended, non-tender. No rebound, no guarding. No CVA tenderness, no hepatosplenomegaly. Bowel sounds present to all four quadrants. Extremities: No cyanosis, clubbing, or edema present. Pulses are palpable 2/2. Active ROM to all four extremities. Neuro: Alert and orientated x 4. Cranial nerves 2-12 intact without focal deficit. Skin: Warm, dry, and intact, without rash, erythema, or lesion. Psych: pleasant, cooperative, normal speech, normal affect, no hallucinations, no dysarthria DS: Data Data Completed and Pending Labs on day of discharge: Labs from last 24 hours 10/23/23 06:21 WBC 8.8 RBC 4.80 Hgb 12.3 L Hct 39.0 L MCV 81.3 MCH
== END 2023-10-23 13:29 | disposition home or self-care (01) | DRG 392 ==
LOC: ANHED 17:59 → ANH3MEDSUR 21:35
PROVIDERS: Nurse Practitioner Acute Care; Nurse Practitioner Family; Student in an Organized Health Care Education/Training Program; Admitting Provider Internal Medicine; Emergency Provider Physician Assistant; PCP Student in an Organized Health Care Education/Training Program; Visit Provider Nurse Practitioner
DX: K57.20 Diverticulitis of large intestine with perforation and abscess without bleeding (principal); Z68.41 Body mass index [BMI] 40.0-44.9, adult; G47.33 Obstructive sleep apnea (adult) (pediatric); E66.01 Morbid (severe) obesity due to excess calories
CPT/HCPCS: 36415; 74177; 80048; 80053; 81001; 83690; 85025; 85027; 94762; 96365; 96366; 96367; 96375; 99285; A9270; G0378; J0696; J1170; J1650; J1836; J2270; J2405; J7030; J7050; Q9967

== ENCOUNTER 2023-12-17 17:10 | Emergency (ER) | payer OTHER, MEDICAID, SELFPAY ==
[2023-12-17 17:17] VITALS: BP 171/101; PULSE 95; RESP 18; TEMP 36.4; O2SAT 100
--- NOTE | 2023-12-17 21:40 | PC.NURSE ---
Patient called from waiting room x2, no answer
== END 2023-12-18 00:20 | disposition left against medical advice (07) ==
PROVIDERS: PCP Student in an Organized Health Care Education/Training Program
DX: R10.9 Unspecified abdominal pain (principal)
CPT/HCPCS: 99199